=== PATIENT | male | born 1955 | race Caucasian/White ===

== ENCOUNTER 2025-03-26 13:50 | Inpatient (IN) | payer MEDICARE, MEDICAID ==
[~2025-03-26] VITALS: Ht 177.8 cm; Wt 93.0 kg
[2025-03-26] VITALS (8 sets, daily range): BP systolic 151–159; BP diastolic 80–177; PULSE 89–95; RESP 16–23; TEMP 97.1–97.6; O2SAT 91–99
[~2025-03-26 13:50] MED LIST: CLOZ100T PO; CLOZ100T2 PO; ERGO500041 PO; FERR325T39 PO; LOP25T PO; METO-292 PO; OXYB5TAB21 PO; POLY119P2 PO; SIMV-42 PO; SUCR1TAB28 PO; VENL150C5 PO; VIT1TABL83 PO; VITC500T PO; [UNRECOGNIZED DRUG - CODE] PO
--- NOTE | 2025-03-26 14:02 | ELECTROCARDIOGRAPH REPORT ---
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 Sudarshan Ramirez Measurements Intervals [place] Rate: 106 P: 249 [place]: 89 QRS: -26 QRSD: 110 T: 113 QT: 349 QTc: 464 Interpretive Statements Ectopic atrial tachycardia, unifocal Atrial premature complexes Anterior infarct, old Repol abnrm suggests ischemia, lateral leads Electronically Signed On 03-26-2025 18:20:[address] Sudarshan Ramirez Please click the below link to view image of tracing.
--- NOTE | 2025-03-26 14:09 | Physician Documentation ---
History of Present Illness ~ Chief Complaint: Confused Stated Complaint: ALOC Time Seen by MD: 13:54 Primary Medical Doctor: NORMA Source: patient, EMS, EMS notes reviewed, assisted records Mode of Arrival: EMS Exam Limitations: clinical condition HPI Chief Complaint: Confusion, hypotension Caveat: Clinical condition Independent Historians: Paramedics History of Present Illness: Patient is a 70-year-old man brought in by paramed ics from [facility] in [place]. According to staff the patient has had increasing confusion over the last three days. He is normally A&O times three. Patient has been eating and drinking less and becoming increasingly generally weak over the last three days. Today staff found him to be hypotensive but did not provide paramedics with any numbers. Paramedics found the patient to be generally weak and to have a pulse ox in the low 90s. They placed him on 2 L of oxygen. Patient got 50 cc of normal saline prior to arrival. Patient's blood pressure was on the low side 103 systolic per paramedics. Patient states that he has not urinated since last night. Review of systems: All systems were reviewed and are negative except for what is indicated in the history of present illness. Past Medical History: Schizoaffective disorder, BPH Past Surgical History: Social History: Medications: Reviewed as documented Nursing Notes Allergies: Reviewed as documented in Nursing Notes Medication Reconciliation Allergies: Coded Allergies: digoxin (Verified Allergy, Unknown, 03/26/25) lactose (Verified Allergy, Unknown, 10/01/16) Uncoded Allergies: BEES (Allergy, Unknown, 02/26/15) Scheduled Aspirin (Aspir 81), 1 TAB PO DAILY, (Reported) Clozapine (Clozapine), 1 TAB PO HS, (Reported) Docusate Sodium (Colace), 1 CAP PO Q12H, (Reported) Famotidine (Famotidine), 1 TAB PO Q12H, (Reported) Loperamide HCl (Imodium A-D), 1 CAP PO Q8H, (Reported) Magnesium Citrate (MAGNESIUM CITRATE oral solution), 296 ML PO ONCE, (Reported) Meclizine HCl (Meclizine HCl), 1 TAB PO Q8H, (Reported) Metoprolol Tartrate* (Lopressor tablet*), 25 MG PO BID Polyethylene Glycol 3350 (Miralax), 17 GM PO DAILY, (Reported) Sennosides (Senna), 2 TAB PO Q12H, (Reported) Simvastatin* (Zocor*), 20 MG PO HS, (Reported) Tamsulosin Hcl* (Flomax*), 1 CAP PO DAILY, (Reported) Venlafaxine HCl (Effexor Xr), 2 CAP PO DAILY, (Reported) Scheduled PRN Oxycodone HCl/Acetaminophen (Percocet 10-325 mg Tablet), 1 TAB PO QID PRN PRN for pain, (Reported) Miscellaneous Medications Acetaminophen (Tylenol), (Reported) Na Phos,M-B/Na Phos,Di-Ba (Fleet Enema Extra), (Reported) ONDANSETRON ODT 4mg tablet (Ondansetron Odt), 4 MG PO, (Reported) Tuberculin,Purif.prot.deriv. (APLISOL - PPD inj.), 5 UNITS ID, (Reported) Discontinued Medications Ascorbic Acid* (Vitamin C*), 1 TAB PO DAILY, (Reported) Discontinued Reason: patient no longer taking Clozapine (Clozaril), 200 MG PO QAM, (Reported) Discontinued Reason: patient no longer taking Clozapine (Clozaril), 4 TAB PO HS, (Reported) Discontinued Reason: patient no longer taking Ergocalciferol (Vitamin D2) (Vitamin D2), 1 CAP PO Q7D, (Reported) Discontinued Reason: patient no longer taking Ferrous Sulfate (Ferrous Sulfate), 1 TABLET PO BID, (Reported) Discontinued Reason: patient no longer taking Fludrocortisone Acetate (Florinef), 0.2 MG PO DAILY, (Reported) Discontinued Reason: patient no longer taking Metoclopramide HCl (Reglan), 5 MG PO Q8H, (Reported) Discontinued Reason: patient no longer taking Oxybutynin Chloride (Oxybutynin Chloride), 5 MG PO BID Discontinued Reason: patient no longer taking Sucralfate (CARAFATE tablet), 1 GM PO BID, (Reported) Discontinued Reason: patient no longer taking Vit B Comp/C/Fa/Iron/Vit E (Vitamin B Complex Tablet), 1 EACH PO DAILY, (Reported) Discontinued Reason: patient no longer taking Past Medical History Past Medical History: BPH, Schizophrenia Past Surgical History: other Other Past Surgical History: ventral hernia, renal artery stent, vagotomy with pyloroplasty, TURP Patient History: FH: CHF (congestive heart failure) Other Past Family History: NONCONTRIBUTORY Alcohol Use: None Drug Use: none Lives with: Other Lives In: Assisted Care Occupation: retired Review of Systems All Other Systems at this time: Reviewed and Negative ROS Patient denies any other acute symptoms other than above. All other systems are negative Unable to obtain complete ROS: altered mental status Physical Exam Vital Signs: RN Vital Signs have been reviewed: Yes, Temperature: 98.3, Source: Oral, Heart Rate: 103, Respiratory Rate: 16, BP: 127/81, Pulse Oximetry: 98, Weight: 93.000 Pulse Oximetry Reflects: adequate oxygenation Physical Exam General Appearance: No distress, acutely and chronically ill-appearing, pale- appearing HEENT: Normal OP, dry oral mucosa, PERRL, EOMI, head and face are atraumatic Neck: supple, normal ROM, trachea midline Pulmonary: Mild tachypnea, No respiratory distress, CTA, BS equal Cardiac: Tachycardic, regular rhythm, no murmur, rub or gallop, GI: nondistended, soft, nontender, normal bowel sounds, no guarding, no rebound Extremities: normal ROM, no swelling, non-tender Skin: intact, dry, warm, no rashes, pale appearing Neuro: Speech is difficult to understand because he is edentulous, lethargic, n ot oriented. no focal motor weakness, moves all extremities Psych: normal affect, good eye contact, no apparent hallucination, normal speech Progress Results/Orders Results/Orders Orders - ANN RAMÍREZ MD Electrocardiogram (03/26/25 13:56) Culture Blood (03/26/25 13:56) Chest,Single View (03/26/25 14:11) * (B) Bell- Non Protocol * Q12H@,19 (03/26/25 13:56) Ct Head (03/26/25 15:41) Page Hospitalist (03/26/25 16:26) Fill Out Med Reconciliation (03/26/25 16:26) Completed Orders - ANN RAMÍREZ MD Electrocardiogram (03/26/25 13:56) Cbc/Diff (03/26/25 13:56) MG (03/26/25 13:56) Chest,Single View (03/26/25 14:11) Normal Saline 1000ml (0.9% Sodium Chlori (03/26/25 14:00) Procalcitonin (03/26/25 13:56) Ceftriaxone 2gm/D5w 50ml Bag (Rocephin 2 (03/26/25 14:00) Hs Troponin I W Calculations (03/26/25 13:56) Hs Troponin I W Calculations (03/26/25 15:56) Lacticsepsis (03/26/25 13:56) CMP (03/26/25 13:56) Ua W/Microscopic, Cult If Ind (03/26/25 14:26) Ct Head (03/26/25 15:41) Lipase (03/26/25 14:08) Vital Signs 03/26/25 03/26/25 03/26/25 03/26/25 13:52 14:37 14:53 15:20 Temp 98.3 Pulse 103 103 102 Resp 16 16 16 18 B/P (MAP) 127/81 155/85 (108) 141/78 (99) Pulse Ox 98 100 99 O2 Flow Rate 4.0 4.0 4.0 03/26/25 03/26/25 15:55 17:04 Pulse 93 91 Resp 18 16 B/P (MAP) 142/77 (98) 155/78 (103) Pulse Ox 95 99 O2 Flow Rate 4.0 4.0 Laboratory Tests Test 03/26/25 14:08 03/26/25 14:26 03/26/25 16:05 White Blood Count 15.1 H Red Blood Count 4.50 L Hemoglobin 12.9 L Hematocrit 38.7 L Mean Corpuscular Volume 85.9 Mean Corpuscular Hemoglobin 28.6 Mean Corpuscular Hemoglobin Concent 33.2 Red Cell Distribution Width 13.4 Platelet Count 228 Mean Platelet Volume 7.7 Neutrophils (%) (Auto) 85.2 H Lymphocytes (%) (Auto) 5.6 L Monocytes (%) (Auto) 8.0 Eosinophils (%) (Auto) 1.0 Basophils (%) (Auto) 0.2 Neutrophils # (Auto) 12.9 H Lymphocytes # (Auto) 0.9 L Monocytes # (Auto) 1.2 H Eosinophils # (Auto) 0.1 Basophils # (Auto) 0.0 CBC Comment D-Dimer 2.46 H D-Dimer Comment Sodium Level 137 Potassium Level 3.5 Chloride Level 100 Carbon Dioxide Level 25.2 Anion Gap 12 Blood Urea Nitrogen 52 H Creatinine 1.91 H Estimated GFR/1.73 m2 35 BUN/Creatinine Ratio 27.2 H Glucose Level 116 H Lactic Acid Level 2.0 Calcium Level 8.6 Magnesium Level 2.4 Total Bilirubin 0.4 Aspartate Amino Transf (AST/SGOT) 42 H Alanine Aminotransferase (ALT/SGPT) 39 Alkaline Phosphatase 82 Troponin I High Sensitivity 20 20 Total Protein 6.8 Albumin 2.6 L Globulin 4.2 Albumin/Globulin Ratio 0.6 L Lipase 101 H Procalcitonin 0.05 Chemistry Comments Urine Specimen Description Bell cath Urine Color Yellow Urine Clarity Slightly cloudy Urine pH 5.5 Urine Specific Hundred 1.015 Urine Protein Negative Urine Glucose (UA) Negative Urine Ketones Negative Urine Occult Blood Negative Urine Nitrite Negative Urine Bilirubin Negative Urine Urobilinogen 0.2 Urine Leukocyte Esterase Negative Urine RBC 0-2 Urine WBC 0-4 Urine Squamous Epithelial Cells Few Urine Amorphous Urates 1+ Urine Bacteria Few Urine Culture Indicated Not ind Volume Urine Centrifuged 10 ml Urine Comment Troponin I High Sens Percent Delta 0 Troponin I Hi Sens Absolute Change 0 Microbiology Date/Time Source Procedure Growth Status 03/26/25 16:05 Blood Arm Left Blood Culture - Preliminary NO GROWTH AFTER 1 DAY Resulted Medical Decision Making Additional info obtained from: old records Findings Differential diagnosis includes but is not limited to: Metabolic encephalopathy, dehydration, acute kidney injury, electrolyte abnormalities, sepsis, urinary tract infection, GI bleed, pneumonia, dementia, delirium EKG independent interpretation: Performed at 1:59 p.m.. Ectopic atrial tachycardia, heart rate 106, left axis deviation, Q-waves in V1 through V3 Chest x-ray, single view, indication: Altered mental status, hypotension Independent interpretation: Lungs are clear, normal mediastinum, normal cardiac silhouette. No acute cardiopulmonary process CT without IV contrast, indication: Altered mental status Impression: No acute intracranial abnormality Laboratory data independent interpretation: CBC: Leukocytosis 15.1, mild anemia with a hemoglobin of 12.9, 85.2% neutrophils CMP: Elevated BUN and creatinine of 52 and 1.91 respectively. This is consistent with the acute kidney injury and his above his baseline. Lactic acid: 2 1st troponin: 20 Procalcitonin: 0.05 Urinalysis: Unremarkable Emergency department course/medical decision-making: Patient is a 70-year-old man from a assisted who presents with generalized weakness, mild hypotension and dehydration. Patient has a mild acute kidney injury. Patient was worked up for sepsis and given 2.5 L of normal saline and empiric antibiotics, Rocephin 1 g IV. Patient's blood pressure has normalized in his currently 141 systolic. Bell catheter was placed to monitor urine output. Patient's hypotension has resolved since he arrives. Source of the leukocytosis has not identified. Urine is unremarkable. No evidence of pneumonia on the chest x-ray. Patient is now hemodynamically stable. Recommend admission and continued IV antibiotics. Consultation/communications: Approximately 5:00 p.m.: Case discussed with the hospitalist Dr. Shoemaker. She will evaluate the patient for admission. Departure Disposition: ADMITTED INPATIENT Admitted to Inpatient Unit: to hospitalist Admission Level of Care: Med/Surg with Tele Impression: Primary Impression: Altered mental status Qualified Codes: R40.0 - Somnolence Condition: Fair Education Educated: Patient Educated regarding: diagnosis, treatment Signature Scribe Signature: No scribe Attestation: No scribe ANN RAMÍREZ MD Mar 26, 2025 14:09
[2025-03-26] MEDS: CefTRIAXone 2gm/D5W 50ml BAG 50 ML IV ONE (14:13)
[2025-03-26] MEDS: normal saline 1000ML IV soln IV ONE (14:14)
--- NOTE | 2025-03-26 14:23 | RADIOLOGY REPORT ---
CHEST RADIOGRAPH Indication: SEPSIS Technique: Single frontal view of the chest was obtained Comparison: None FINDINGS: Lines and Tubes: None Lungs: No focal consolidation. Pleura: No effusion. No pneumothorax. Cardiomediastinal contours: Heart size is within normal limits with moderate atherosclerotic calcific ation and uncoiling of the aorta. Bones: No acute osseous abnormality. IMPRESSION: No acute cardiopulmonary disease.
[2025-03-26 14:25] LABS: MEAN PLATELET VOLUME 7.7 FL (7.4-10.4); RED CELL DISTRIBUTION WIDTH 13.4 % (11.5-14.5)
[2025-03-26 14:46] LABS: LEUKOCYTE ESTERASE ,URINE NEGATIVE (Neg); NITRITES, URINE NEGATIVE (Neg); OCCULT BLOOD,URINE NEGATIVE (Neg)
[2025-03-26 14:53] LABS: UA COLLECTION TYPE FOLEY CATH
[2025-03-26 14:54] LABS: CREATININE 1.91 MG/DL (0.60-1.10); TOTAL CARBON DIOXIDE 25.2 MMOL/L (24-32); eCRCL 36 ML/MIN; eGFR 35 ML/MIN
[2025-03-26 14:54] LABS: AMORPHOUS URATES 1+; SQUAMOUS EPITHELIAL CELL,UR FEW /LPF (FEW)
--- NOTE | 2025-03-26 16:08 | RADIOLOGY REPORT ---
EXAM: CT CT HEAD INDICATION: aloc TECHNIQUE: CT of the head without intravenous contrast. Radiation Dose : 1. Head: CT Dose: CTDI volume is 52 mGy. Dose-length product is 1019 mGy*cm The dose indicators for CT are the volume Computed Tomography (CT) Dose Index (CTDIvol) and the Dose Length Product (DLP), and are measured in units of mGy and mGy-cm, respectively. These indicators are not patient dose, but values generated from the CT scanner acquisition factors. The report includes radiation exposure data for exposures received during this examination. COMPARISON: None FINDINGS: There is no evidence of acute intracranial hemorrhage, extra-axial collection, mass effect, midline s hift, herniation or hydrocephalus. The ventricles, sulci and cisterns are age appropriate. The smith-white differentiation is intact. Patchy periventricular and subcortical white matter hypoattenuation is nonspecific but may be related to small vessel ischemic disease. The visualized paranasal sinuses and mastoid air cells are clear. The surrounding soft tissues and osseous structures are unremarkable. IMPRESSION: No acute intracranial abnormality. Radiation optimization: All CT scans at this facility use at least one of these dose optimization tanya hniques: automated exposure control mA and/or kV adjustment per patient size (includes targeted exam s where dose is matched to clinical indication) or iterative reconstruction.
[2025-03-26] MEDS ORDERED: potassium Cl 40MEQ/1/2NS 520ml 520 ML IV PRN (17:20)
[2025-03-26] MEDS ORDERED: HYDROcodone/acetaminophen 5mg/325mg tablet PO PRN (17:20)
[2025-03-26] MEDS ORDERED: magnesium sulf-water 4G/100mL 100 ML IV PRN (17:20)
[2025-03-26] MEDS ORDERED: ondansetron 4mg rapidly disintigrating tab PO PRN (17:20)
[2025-03-26] MEDS ORDERED: potassium Cl 20 mEq SR tablet PO PRN (17:20)
[2025-03-26] MEDS ORDERED: magnesium sulf-water 2g/50mL 50 ML IV PRN (17:20)
[2025-03-26] MEDS ORDERED: hydrALAZINE 20mg/ml inj. IV PRN ×2 (17:25→19:00)
[2025-03-26] MEDS: normal saline 500ml IV soln 500 ML IV ONE (17:44)
[2025-03-26 17:53] LABS: ABG BASE EXCESS -4.8 mmol/L (-2.0-3.0); ABG HCO3 19.5 mmol/L (21.0-28.0); ABG OXYGEN SATURATION 95.8 % (94.0-98.0); ABG PCO2 (T) 33.3 mmHg (35.0-48.0); ABG PH (T) 7.384 (7.350-7.450); ABG PO2 (T) 91.8 mmHg (83.0-108.0); ALLEN'S TEST POSITIVE; FCOHb 0.3 % (0.5-1.5); FHHb 4.2 % (0.0-5.0); FIO2 34.0 mmHg/%; FLOW 4 L/min; FMetHb 0.3 % (0.0-1.5); FO2Hb 95.2 % (94.0-98.0); MODE NASAL CANNULA; PATIENT TEMPERATURE 36.8; TOTAL HEMOGLOBIN 11.6 G/dl (13.5-17.5)
--- NOTE | 2025-03-26 17:57 | HISTORY AND PHYSICAL ---
History & Physical Providers to CC ~ History of Present Illness Reason for Admit\Complaint: sepsis, GRACIA History of Present Illness Inderjit Thomas is a 70-year-old male with history of CKD stage III who was brought to the ED from [facility] in [place] due to confusion x 3 days. According to staff the patient is normally A&O x3. Patient has been eating and drinking less and becoming increasingly generally weak over the last three days. Today staff found him to be hypotensive but did not provide paramedics with any readings, though patient's initial BP taken by paramedics was soft with systolic in 100s. Paramedics found the patient to be generally weak and to have a pulse ox in the low 90s. They placed him on 2 L of oxygen. Patient states that he has not urinated since last night. During initial assessment, patient is awake but confused hence history taking is limited. Initial diagnostic findings were notable for signs of sepsis and hypoxia requiring supplemental oxygen. Patient is to be admitted for further workups and treatment. Allergies: Coded Allergies: digoxin (Verified Allergy, Unknown, 03/26/25) lactose (Verified Allergy, Unknown, 10/01/16) Uncoded Allergies: BEES (Allergy, Unknown, 02/26/15) Home Medications Home Medications Active Oxybutynin Chloride 5 Mg Tablet 5 Mg PO BID 30 Days Metoprolol Tartrate 25 Mg Tablet 25 Mg PO BID Reported Vitamin D2 (Ergocalciferol (Vitamin D2)) 50,000 Unit Capsule 1 Cap PO Q7D 28 Days Reglan (Metoclopramide HCl) 10 Mg Tablet 5 Mg PO Q8H 30 Days Ferrous Sulfate 325 Mg Tablet 1 Tablet PO BID Effexor Xr (Venlafaxine HCl) 150 Mg Cap.er.24h 2 Cap PO DAILY 30 Days Vitamin B Complex Tablet (Vit B Comp/C/Fa/Iron/Vit E) 1 Each Tablet 1 Each PO DAILY Vitamin C* (Ascorbic Acid) 500 Mg Tablet 1 Tab PO DAILY Florinef (Fludrocortisone Acetate) 0.1 Mg Tablet 0.2 Mg PO DAILY Miralax (Polyethylene Glycol 3350) 255 Gm Powder 17 Gm PO DAILY Clozaril (Clozapine) 100 Mg Tablet 4 Tab PO HS 30 Days Zocor* (Simvastatin) 20 Mg Tablet 20 Mg PO HS Clozaril (Clozapine) 100 Mg Tablet 200 Mg PO QAM CARAFATE tablet (Sucralfate) 1 Gm Tablet 1 Gm PO BID Past Medical History Past Medical History CKD, stage III Hypotension Past Surgical History Surgical History Comment Noncontributory Family History Family History: FH: CHF (congestive heart failure) Past Social History Social History Comment Alcohol: Denies Tobacco: Denies Illicit drug use: Denies Living situation: [facility] ROS ROS Other than positives in HPI, all 14 review of systems are negative Exam Vitals: Vital Signs Date Time Temp Pulse Resp B/P (MAP) Pulse Ox O2 Delivery O2 Flow Rate FiO2 03/26/25 17:04 91 16 155/78 (103) 99 4.0 03/26/25 13:52 98.3 General: Confused, NAD HEENT: Normocephalic, PERRLA Neck: Supple, trachea midline, no JVD Chest: Clear to auscultation bilaterally Cardiovascular: RRR, S1&S2 Abdomen: Soft and nontender Extremities: No cyanosis/clubbing/or edema Central Nervous System: No focal deficits Musculoskeletal: No paraspinal muscle tenderness, no muscle spasm Skin: Warm and intact Diagnostic Data Last Recorded Lab Results: 03/26/25 1408 03/26/25 1408 Diagnostic Data: Laboratory Tests Test 03/26/25 14:08 D-Dimer 2.46 MG/L FEU (0-0.50) H D-Dimer Comment Counseling Services Smoking & Tobacco Cessation: > 10 Minutes Additional Plan Assessment & Plan Sepsis 2/2 PNA Community-acquired pneumonia, covering for Gram-positive and Gram-negative Acute hypoxic respiratory failure 2/2 above GRACIA vs CKD Hx CKD, stage III Dehydration Malnutrition, severe -BUN/Cr 27, Cr 1.9, GFR 35, lactic acid wnl, serum lytes wnl, CT negative, CT chest b/l pneumonia, UA negative for UTI, procal negative, trops negative, hypoxia, tachycardia, Well's score 3, d-dimer 2.46, EKG ectopic atrial tachy at 106bpm no ST elevation/depression -fluid resuscitation, abx, supplemental oxygen, bronchodilator -follow blood cx, renal US, spot urine lytes, ABG, V/Q scan, strict I&Os DVT/VTE Prophylaxis: heparin Code Status: Full code by default until further assessment Date of Service: Mar 26, 2025 Billing Provider: JONATHON VO [facility] [facility] Common Visit Codes: [id number] INP/OBS CARE (HIGH) JONATHON VO [facility] Mar 26, 2025 17:57
[2025-03-26] MEDS: normal saline 1000ml 1,000 ML IV SCH (18:13)
[2025-03-26] MEDS: azithromycin/NS 500mg/250ml 250 ML IV ONE (18:24)
--- NOTE | 2025-03-26 18:25 | RADIOLOGY REPORT ---
Indication: resp failure, sepsis Technique: CT axial images of the chest are obtained without contrast. Coronal and sagittal reformats were obtained. Radiation Dose Information: CTDI volume is 18.3 mGy. Dose-length product is 672 cm mGy*cm Comparison: None FINDINGS: The trachea is patent. No pneumothorax. Pulmonary emphysematous changes. Bilateral lower lobe consoli dation, [id number]-left. Small right, tiny left pleural effusions. Heart enlarged. Coronary artery calcification disease. Mitral valvular prosthesis. No supraclavicularm, axillary lymphadenopathy. Pretracheal lymph node measuring 12 mm. Right paratra cheal lymph node measuring 13 mm. Numerous subcentimeter prevascular/aortopulmonary lymph nodes. Left paratracheal lymph node measuring 1.7 cm. Esophageal distention, wall thickening. Distal right paraesophageal lymph node measuring 2.2 cm Small hiatal hernia. Gastric distention. No aggressive osseous process. Moderate thoracic degenerative disc disease. Stranding in the upper abdomen near the pancreas. IMPRESSION: Limited evaluation without contrast. Bilateral lower lobe airspace consolidation, [id number]-[id number]-tfrm-left. Small right, tiny left pleural effusions. Mediastinal lymphadenopathy. Stranding in the upper abdomen surrounding the pancreas. Correlate for pancreatitis and other etiolo gies. Esophageal distention and wall thickening with paraesophageal lymphadenopathy. Correlate for esophag itis and other etiologies /mass/neoplasm. Recommend GI consultation for further evaluation.
[2025-03-26] MEDS ORDERED: CLOZ50TA9 PO (18:47)
[2025-03-26] MEDS ORDERED: NA P230E (18:47)
[2025-03-26] MEDS ORDERED: FAMO20TA8 PO (18:47)
[2025-03-26] MEDS ORDERED: DOCU-148 PO (18:47)
[2025-03-26] MEDS ORDERED: MAGN296S68 PO (18:47)
[2025-03-26] MEDS ORDERED: ASPI-611 PO (18:47)
[2025-03-26] MEDS ORDERED: LOPE-190 PO (18:47)
[2025-03-26] MEDS ORDERED: TAMS-55 PO (18:47)
[2025-03-26] MEDS ORDERED: SENN-360 PO (18:47)
[2025-03-26] MEDS ORDERED: ACET-895 (18:47)
[2025-03-26] MEDS ORDERED: PPD ID (18:47)
[2025-03-26] MEDS ORDERED: ONDA-243 PO (18:47)
[2025-03-26] MEDS ORDERED: MECL-302 PO (18:47)
[2025-03-26] MEDS ORDERED: OXYC-150 PO (18:47)
[2025-03-26] MEDS: ipratropium/albuterol 3ml nebule NEB SCH (19:29)
[2025-03-26] MEDS: K and/or MAG REPLACEMENT MC SCH (19:59)
[2025-03-26] MEDS: heparin, porcine 5000 units/ml vial SQ SCH (20:23)
[2025-03-26] MEDS: docusate sod 100mg capsule PO SCH (20:26)
[2025-03-26] MEDS: HYDROcodone/acetaminophen 10/325mg tab PO PRN (21:44)
--- NOTE | 2025-03-26 23:00 | RADIOLOGY REPORT ---
INDICATION: roland TECHNIQUE: Multiple real-time sonographic images of the kidneys and bladder were obtained. COMPARISON: None FINDINGS: RIGHT kidney measures 9.9 x 5.6 x 4.7 cm in length with normal renal parenchymal echotexture and maegan ical thickness. No hydronephrosis. LEFT kidney measures 9.3 x 4.9 x 4.7 cm in length with normal renal parenchymal echotexture and corti jonathon thickness. Moderate hydronephrosis. No large intraluminal masses are seen in the bladder. Post void residual not assessed. Catheter present. IMPRESSION: 1. Moderate left hydronephrosis.
[2025-03-27] VITALS (23 sets, daily range): BP systolic 96–133; BP diastolic 49–68; PULSE 78–150; RESP 14–35; TEMP 97.3–97.8; O2SAT 92–98
[2025-03-27 00:23] LABS: CREATININE,URINE RANDOM 95.0 MG/DL; TOTAL PROTEIN,URINE RANDOM 61.1 MG/DL
[2025-03-27 00:26] LABS: GLUCOSE,URINE RANDOM 15.0 MG/DL
[2025-03-27 04:58] LABS: MEAN PLATELET VOLUME 7.3 FL (7.4-10.4); RED CELL DISTRIBUTION WIDTH 13.8 % (11.5-14.5)
[2025-03-27 05:27] LABS: CREATININE 1.40 MG/DL (0.60-1.10); TOTAL CARBON DIOXIDE 23.5 MMOL/L (24-32); eCRCL 49 ML/MIN; eGFR 50 ML/MIN
[2025-03-27] MEDS: metoprolol tartrate 1mg/ml inj IV ONE (06:35)
--- NOTE | 2025-03-27 06:54 | ELECTROCARDIOGRAPH REPORT ---
[facility] Test Date: 2025-03-27 Test Time: 06:40:29 Pat Name: AUBREY JAVED Department: ORTHO/NEURO Room: ORTHO 4008 A Gender: M Rn Labor And Delivery: : 1955 Requested By: GUALBERTO JEWELL Order Number: [id number] Reading MD: Dr. Jude George Measurements Intervals [place] Rate: 140 P: 0 [place]: 0 QRS: -33 QRSD: 103 T: 133 QT: 304 QTc: 464 Interpretive Statements Atrial fibrillation with rapid V-rate Left axis deviation Anterior infarct, old Consider old inferior infarct Repolarization abnormality, prob rate related Electronically Signed On 03-27-2025 7:59:[address] Jude George Please click the below link to view image of tracing.
[2025-03-27] MEDS ORDERED: metoprolol tartrate 1mg/ml inj IV PRN (07:10)
[2025-03-27] MEDS: normal saline 500ml IV soln 500 ML IV ONE (07:37)
--- NOTE | 2025-03-27 07:41 | RADIOLOGY REPORT ---
EXAM: XR Chest, 1 View CLINICAL INDICATION: Pain TECHNIQUE: Frontal view of the chest. COMPARISON: No relevant prior studies available. FINDINGS: LUNGS AND PLEURAL SPACES: Pulmonary venous congestion. No consolidation. No pneumothorax. HEART: Unremarkable. No cardiomegaly. MEDIASTINUM: Unremarkable. Normal mediastinal contour. BONES/JOINTS: Unremarkable. No acute fracture. IMPRESSION: Pulmonary venous congestion.
--- NOTE | 2025-03-27 09:24 | RADIOLOGY REPORT ---
CLINICAL INFORMATION: Chest pain. TECHNIQUE: Axial CTA images of the chest were obtained after the uneventful administration of 100 mL of Omnipaque 350 IV contrast. Coronal and sagittal reformatted images and MIP images were obtained, r eviewed, and stored. One or more of the following dose reduction techniques were used: Automated expo sure control. Adjustment of mA and/or kV according to patient size. CTDIvol = 20.63, 15.51, 0.07, 0. 07 mGy DLP = 754.46 mGy-cm COMPARISON: None FINDINGS: Pulmonary arteries: There is artifact from dense contrast in the SVC partially obscuring visualizatio n of portions of the proximal right upper lobe and right middle lobe pulmonary artery branches. Given this limitation, there is no evidence for pulmonary embolism. Aorta: No aneurysm. Dense atherosclerotic calcification. Cardiac: Mild cardiomegaly. Dense coronary artery calcification. Mediastinum/robert: Small mediastinal lymph nodes. There is moderate esophageal distension with fluid a nd gas throughout most of its thoracic course. Lungs: Small to moderate right pleural effusion and small left pleural effusion with overlying atelec tasis. There is superimposed consolidation in the right lower lobe. Patchy airspace consolidation in the left lower lobe. Mild interlobular septal thickening, may be seen with interstitial pulmonary jhonathan ma. There are areas of reticulation in the lungs bilaterally, may be due to fibrotic changes. Chest wall: No mass or other abnormality. Upper abdomen: Hepatic steatosis. Gallbladder is distended moderate gastric distention with fluid. Th ere is partially visualized peripancreatic stranding. Bones: No acute fracture or suspicious intraosseous lesions. IMPRESSION: 1. No evidence of pulmonary embolism. Dense contrast in the SVC partially obscures portions of the pr oximal right upper lobe and right middle lobe pulmonary artery branches. 2. Bilateral pleural effusions, right greater than left with overlying atelectasis and consolidations in the lower lobes. 3. Interlobular septal thickening, may be seen with interstitial pulmonary edema in the appropriate c linical setting. Correlate with clinical findings. 4. Partially visualized peripancreatic stranding. Correlate clinically to exclude acute pancreatitis . 5. The stomach and esophagus are distended with fluid and gas, may be due to ileus. Correlate with c linical findings. 6. Additional findings as detailed above.
--- NOTE | 2025-03-27 09:47 | RADIOLOGY REPORT ---
CLINICAL INFORMATION: Respiratory failure, tachycardia. Elevated D-dimer. TECHNIQUE: 40.2 mCi of aerosolized Tc99m DTPA was used for the ventilation portion of the exam. Post erior ventilation imaging was obtained. 4.9 mCi of technetium 99m MAA was used for the perfusion port ion of the exam. Imaging was obtained in multiple planes of projection. COMPARISON: Same day CTA chest. Same day chest radiograph. FINDINGS: Perfusion imaging shows no mismatched segmental or subsegmental segmental defects. Ventilation imaging shows no defects. IMPRESSION: Normal exam. No evidence of pulmonary embolism.
[2025-03-27] MEDS: amiodarone 150mg/dext, iso-os 100 ML IV ONE (09:55)
[2025-03-27] MEDS: amiodarone/D5 360MG/200ML BAG 200 ML IV SCH (10:22)
[2025-03-27] MEDS: mag hydrox/Alum hydrox/simeth 30ml oral suspension PO PRN (10:50)
[2025-03-27] MEDS: potassium Cl 20 mEq SR tablet PO PRN (10:53)
--- NOTE | 2025-03-27 11:03 | PROGRESS NOTE ---
Daily Progress Note Providers to CC ~ Antibiotic Timeout Antibiotic Ordered?: Yes Subjective No acute events overnight. Patient examined at bedside. No new complaints. Patient is A&Ox3 today, denies chest pain, sob, palpitations, abdominal pain, n/v/d. CTA chest negative for pulmonary embolism. Admitted with hypoxia secondary to pneumonia, developed afib RVR today with hypotension, afib rvr in 150s converted to sinus and rate in 80s-90s after metoprolol tart, one dose digoxin, amiodaron drip. LVEF 50-55%, mild dilation of left atrium, no significant VHD. Objective Vital Signs Date Time Temp Pulse Resp B/P (MAP) Pulse Ox O2 Delivery O2 Flow Rate FiO2 03/27/25 10:37 130 18 96/58 (71) 95 Nasal Cannula 2.0 03/27/25 07:47 28 03/27/25 06:00 97.7 Result Diagram: 03/27/25 0445 03/27/255 Physical Exam General: A&Ox3, NAD HEENT: Normocephalic, PERRLA Neck: Supple, trachea midline, no JVD Chest: Clear to auscultation bilaterally Cardiovascular: IRIR Abdomen: Soft and nontender Extremities: No cyanosis/clubbing/or edema Central Nervous System: No focal deficits Musculoskeletal: No paraspinal muscle tenderness, no muscle spasm Skin: Warm and intact Coagulation Studies Laboratory Tests Test 03/27/25 08:30 D-Dimer 2.38 MG/L FEU (0-0.50) H D-Dimer Comment Problem\Assessment\Plan Assessment & Plan Sepsis 2/2 PNA Community-acquired pneumonia, covering for Gram-positive and Gram-negative Acute hypoxic respiratory failure 2/2 above GRACIA vs CKD Hx CKD, stage III Dehydration Malnutrition, severe New atrial fibrillation w/ RVR likely 2/2 hypoxia- not POA Chronic urinary retention -BUN/Cr 27, Cr 1.9, GFR 35, lactic acid wnl, serum lytes wnl, CT negative, CT chest b/l pneumonia, UA negative for UTI, procal negative, trops negative, hypoxia, tachycardia, Well's score 3, d-dimer 2.46, EKG ectopic atrial tachy at 106bpm no ST elevation/depression -fluid resuscitation, abx, supplemental oxygen, bronchodilator -follow blood cx, renal US, spot urine lytes, ABG, V/Q scan, strict I&Os -03/27: Cr downtrending, CTA negative PE, afib rvr in 150s converted to sinus and rate in 80s-90s after metoprolol tart, one dose digoxin, amiodaron drip; LVEF 50-55%, mild dilation of left atrium, no significant VHD, will consult his glazier supervisor Dr. Smith DVT/VTE Prophylaxis: Eliquis Code Status: Full Code I spent a total of 35 minutes discussing Advanced Care Planning measures with the patient. Advance care planning: Discussed with patient the importance of advance care planning in case of emergent situation. We discussed various resuscitative measures/ ACP with the patient at the time of admission. Patient voiced understanding and patient has decided on a full code status. Date of Service: Mar 27, 2025 Billing Provider: JONATHNO VO Common Visit Codes: [id number] INP/OBS CARE(HIGH) Secondary Visit Codes: [id number] CARE PLAN 30 MINUTES JONATHON VO Mar 27, 2025 11:03
[2025-03-27] MEDS: CefTRIAXone 2gm/D5W 50ml BAG 50 ML IV SCH (11:52)
[2025-03-27] MEDS: azithromycin/NS 500mg/250ml 250 ML IV SCH (11:52)
[2025-03-27] MEDS: digoxin 250mcg/ml 2ml ampule IV ONE (13:31)
[2025-03-27] MEDS: metoprolol tartrate 12.5mg (1/2 tablet) PO STA (13:37)
[2025-03-27] MEDS ORDERED: diltiazem-NS 100mg/100ml 100 ML IV SCH (14:20)
--- NOTE | 2025-03-27 19:01 | CARDIOLOGY REPORT ---
APPROVED REPORT EXAM: Comprehensive 2D, Doppler, and color-flow Echocardiogram. Patient Location: 3021 Blood Pressure: 121/49 mmHg Heart Rate: 115 - 155 bpm Rhythm: Atrial Fibrillation Indications Atrial Fibrillation THERAPIST ASST: Erasmo Smith MD Previous ECHO: 10/09/2019, CVC, EF: 55; DENNIS: 1.13; GRAD: 39 / 15; MV GRAD: 22 / 8; mod AI 2D Dimensions LA Diam3.9 cm IVSd 0.9 (0.7-1.1cm) LVDd 3.6 cm PWd 1.1 (0.7-1.1cm) IVSs 1.2 (0.8-1.2cm) LVDs 2.6 (2.5-4.0cm) PWs 1.3 (0.8-1.2cm) LVOT Diameter 2.05 (1.8-2.4cm) LVEF(%) 54.9 (>50%) IVC 19.58 mm FS (%) 27.8 % SV 30.2 ml CO 3.7 L/min M-Mode Dimensions Left Atrium(MM) 4.48 (2.5-4.0cm) Aortic Root 2.70 (2.2-3.7cm) Aortic Cusp Exc 1.00 (1.5-2.0cm) Aortic Valve AoV Peak John. 320.5 cm/s AoV VTI 47.6 cm AO Peak GR. 41.1 mmHg AO Mean GR. 24 mmHg LVOT VTI 18.67 cm LVOT Peak John. 109.2 cm/s DENNIS(VTI)/BSA 1.30 cm2/m2 DENNIS (VTI) 1.30 cm2 AI P 1/2 Time 524 ms Mitral Valve MV Peak Gr. 12 mmHg MV Mean Gr. 8 mmHg MV OQnz254.0 cm/sMV UBxcg033.5 cm/s MVA VTI1.76 cm2MV VTI35.2 cm Tricuspid Valve TR P. Velocity 270 cm/s RAP ESTIMATE 10 mmHg TR Peak Gr. 29 mmHg RVSP 39 mmHg LEFT VENTRICLE Normal LV size and wall thickness. Overall systolic function is low normal. LVEF is 50-55%. RIGHT VENTRICLE Right ventricle is grossly normal in size and function. ATRIA Left atrium is mildly dilated. AORTIC VALVE Trileaflet AV is moderately stenostic. DENNIS is measured at 1.30 cmsq. Peak / mean gradients of 41 / 24 mmHG. Peak velocity is measured at 3.20 m/sec. Mild to moderate regurgitation. MITRAL VALVE Moderate mitral annular calcification with moderate stenosis. Peak / mean gradients of 12 / 8 mmHG. Trace regurgitation. TRICUSPID VALVE Tricuspid valve is grossly normal in structure with trace regurgitation. PULMONIC VALVE Pulmonic valve is grossly normal in structure with physiologic insufficiency. GREAT VESSELS The aortic root is normal in size. The IVC is normal in size and collapses >50% with inspiration. PERICARDIUM Normal pericardium. No effusion. Other Information Study Quality: Fair Conclusion Normal LV size and wall thickness. Overall systolic function is low normal. LVEF is 50-55%. Right ventricle is grossly normal in size and function. Left atrium is mildly dilated. Trileaflet AV is moderately stenostic. DENNIS is measured at 1.30 cmsq. Peak / mean gradients of 41 / 24 mmHG. Peak velocity is measured at 3.20 m/sec. Mild to moderate regurgitation. Moderate mitral annular calcification with moderate stenosis. Peak / mean gradients of 12 / 8 mmHG. Trace regurgitation. Tricuspid valve is grossly normal in structure with trace regurgitation. Normal pericardium. No effusion.
[2025-03-27] MEDS ORDERED: metoprolol tartrate 12.5mg (1/2 tablet) PO SCH (20:00)
[2025-03-27] MEDS: PERFLUTREN PROTEIN-A MICROSPHR (Optison) 0.22 MG/ML 3ML VIAL IV ONE (20:50)
[2025-03-28] VITALS (25 sets, daily range): BP systolic 109–141; BP diastolic 48–69; PULSE 82–100; RESP 14–28; TEMP 97–98.2; O2SAT 92–97
[2025-03-28 06:09] LABS: MEAN PLATELET VOLUME 7.3 FL (7.4-10.4); RED CELL DISTRIBUTION WIDTH 13.9 % (11.5-14.5)
[2025-03-28 06:21] LABS: CREATININE 1.18 MG/DL (0.60-1.10); TOTAL CARBON DIOXIDE 23.7 MMOL/L (24-32); eCRCL 58 ML/MIN; eGFR 61 ML/MIN
[2025-03-28] MEDS ORDERED: mineral oil 133ml enema RC PRN (06:45)
[2025-03-28] MEDS: diltiazem CD 120mg capsule (once-daily) PO SCH (08:45)
[2025-03-28] MEDS: magnesium hydroxide 30ml (MOM) UD suspension PO PRN (09:00)
--- NOTE | 2025-03-28 11:33 | PROGRESS NOTE ---
Daily Progress Note Providers to CC ~ Antibiotic Timeout Antibiotic Ordered?: Yes Subjective No acute events overnight. Patient examined at bedside. No new complaints. Patient is A&Ox3 today, denies chest pain, sob, palpitations, abdominal pain, n/v/d. Afib rvr converted and rate controlled, in 90s. Labs unremarkable. On oral diltiazem, metoprolol, amiodarone. Objective Vital Signs Date Time Temp Pulse Resp B/P (MAP) Pulse Ox O2 Delivery O2 Flow Rate FiO2 03/28/25 10:36 90 03/28/25 08:44 20 Nasal Cannula 1.0 03/28/25 08:35 94 24 03/28/25 06:00 97.3 137/69 (91) Result Diagram: 03/28/25 0537 03/28/25 0537 Physical Exam General: A&Ox3, NAD HEENT: Normocephalic, PERRLA Neck: Supple, trachea midline, no JVD Chest: Clear to auscultation bilaterally Cardiovascular: RRR Abdomen: Soft and nontender Extremities: No cyanosis/clubbing/or edema Central Nervous System: No focal deficits Musculoskeletal: No paraspinal muscle tenderness, no muscle spasm Skin: Warm and intact Coagulation Studies Laboratory Tests Test 03/27/25 08:30 D-Dimer 2.38 MG/L FEU (0-0.50) H D-Dimer Comment Problem\Assessment\Plan Assessment & Plan Sepsis 2/2 PNA Community-acquired pneumonia, covering for Gram-positive and Gram-negative Acute hypoxic respiratory failure 2/2 above GRACIA vs CKD Hx CKD, stage III Dehydration Malnutrition, severe New atrial fibrillation w/ RVR likely 2/2 hypoxia- not POA Chronic urinary retention -BUN/Cr 27, Cr 1.9, GFR 35, lactic acid wnl, serum lytes wnl, CT negative, CT chest b/l pneumonia, UA negative for UTI, procal negative, trops negative, hypoxia, tachycardia, Well's score 3, d-dimer 2.46, EKG ectopic atrial tachy at 106bpm no ST elevation/depression -fluid resuscitation, abx, supplemental oxygen, bronchodilator -follow blood cx, renal US, spot urine lytes, ABG, V/Q scan, strict I&Os -03/27: Cr downtrending, CTA negative PE, afib rvr in 150s converted to sinus and rate in 80s-90s after metoprolol tart, one dose digoxin, amiodaron drip; LVEF 50-55%, mild dilation of left atrium, no significant VHD, consulted body and fender mechanic apprentice Dr. Bi Smith who recommends outpatient follow up as afib rvr controlled now -03/28: Tele sinus in 80s-90s. On oral diltiazem, metoprolol, amiodarone DVT/VTE Prophylaxis: Eliquis Code Status: Full Code I spent a total of 35 minutes discussing Advanced Care Planning measures with the patient. Advance care planning: Discussed with patient the importance of advance care planning in case of emergent situation. We discussed various resuscitative measures/ ACP with the patient at the time of admission. Patient voiced understanding and patient has decided on a full code status. Date of Service: Mar 28, 2025 Billing Provider: JONATHON VO Common Visit Codes: [id number] INP/OBS CARE(HIGH) JONATHON VO Mar 28, 2025 11:33
[2025-03-28] MEDS: ringers solution, lacted 1,000 ML IV SCH (12:25)
[2025-03-28] MEDS: lactose-reduced food (Ensure Enlive) - 237ml bottle PO SCH (18:14)
[2025-03-28 22:03] LABS: MEAN PLATELET VOLUME 7.8 FL (7.4-10.4); RED CELL DISTRIBUTION WIDTH 13.8 % (11.5-14.5)
[2025-03-29] VITALS (17 sets, daily range): BP systolic 112–140; BP diastolic 57–83; PULSE 54–109; RESP 11–23; TEMP 97.2–98.4; O2SAT 93–99
[2025-03-29 06:56] LABS: MEAN PLATELET VOLUME 7.7 FL (7.4-10.4); RED CELL DISTRIBUTION WIDTH 13.7 % (11.5-14.5)
[2025-03-29 07:02] LABS: CREATININE 1.22 MG/DL (0.60-1.10); TOTAL CARBON DIOXIDE 24.4 MMOL/L (24-32); eCRCL 57 ML/MIN; eGFR 58 ML/MIN
[2025-03-29] MEDS: ondansetron/PF 4mg/2ml inj IV PRN (07:51)
--- NOTE | 2025-03-29 07:52 | VASCULAR REPORT ---
VASC VL VENOUS HISTORY: elevated dimer COMPARISON: None TECHNIQUE: Duplex doppler evaluation of the deep venous system of the lower extremity from the common femoral veins, superficial femoral vein, great saphenous vein, deep femoral vein, popliteal vein, an d calf veins, including color doppler and spectral/pulsed waveform analysis, was performed. FINDINGS: Right: - Common femoral vein: Compressible - Deep femoral vein: Compressible - Femoral vein: Compressible - Popliteal vein: Compressible - Posterior tibial vein: Waveforms present - Peroneal vein: Waveforms present - Other: Nothing Left: - Common femoral vein: Compressible - Deep femoral vein: Compressible - Femoral vein: Compressible - Popliteal vein: Compressible - Posterior tibial vein: Waveforms present - Peroneal vein: Waveforms present - Other: Nothing IMPRESSION: No right or left lower extremity deep venous thrombosis.
--- NOTE | 2025-03-29 12:35 | PROGRESS NOTE ---
Daily Progress Note Providers to CC ~ Antibiotic Timeout Antibiotic Ordered?: Yes Subjective No acute events overnight. Patient examined at bedside. No new complaints. Patient is A&Ox3 today, denies chest pain, sob, palpitations, abdominal pain, n/v/d. Afib rvr converted and rate controlled, in 90s-100s. Labs unremarkable. An episode of melena and drop of Hgb by 2.6g/dL. MIGUELINA Dhillon Dr. consulted and planned for EGD today but attempt unsuccessful due to severe emesis. Objective Vital Signs Date Time Temp Pulse Resp B/P (MAP) Pulse Ox O2 Delivery O2 Flow Rate FiO2 03/29/25 12:02 98 11 03/29/25 10:47 Nasal Cannula* 2 28 03/29/25 07:00 97.8 133/65 (87) 95 Result Diagram: 03/29/25 0609 03/29/25 0609 Physical Exam General: A&Ox3, NAD HEENT: Normocephalic, PERRLA Neck: Supple, trachea midline, no JVD Chest: Clear to auscultation bilaterally Cardiovascular: RRR Abdomen: Soft and nontender Extremities: No cyanosis/clubbing/or edema Central Nervous System: No focal deficits Musculoskeletal: No paraspinal muscle tenderness, no muscle spasm Skin: Warm and intact Coagulation Studies Laboratory Tests Test 03/27/25 08:30 D-Dimer 2.38 MG/L FEU (0-0.50) H D-Dimer Comment Problem\Assessment\Plan Assessment & Plan Sepsis 2/2 PNA Community-acquired pneumonia, covering for Gram-positive and Gram-negative Acute hypoxic respiratory failure 2/2 above GRACIA vs CKD Hx CKD, stage III Dehydration Malnutrition, severe New atrial fibrillation w/ RVR likely 2/2 hypoxia- not POA Chronic urinary retention -BUN/Cr 27, Cr 1.9, GFR 35, lactic acid wnl, serum lytes wnl, CT negative, CT chest b/l pneumonia, UA negative for UTI, procal negative, trops negative, hypoxia, tachycardia, Well's score 3, d-dimer 2.46, EKG ectopic atrial tachy at 106bpm no ST elevation/depression -fluid resuscitation, abx, supplemental oxygen, bronchodilator -follow blood cx, renal US, spot urine lytes, ABG, V/Q scan, strict I&Os -03/27: Cr downtrending, CTA negative PE, afib rvr in 150s converted to sinus and rate in 80s-90s after metoprolol tart, one dose digoxin, amiodaron drip; LVEF 50-55%, mild dilation of left atrium, no significant VHD, consulted deputy director Dr. Bi Smith who recommends outpatient follow up as afib rvr controlled now -03/28: Tele sinus in 80s-90s. On oral diltiazem, metoprolol, amiodarone -03/30: An episode of melena and drop of Hgb by 2.6g/dL. GI Dr. Hernandez consulted and planned for EGD today but attempt unsuccessful due to severe emesis. EGD rescheduled for tomorrow. DVT/VTE Prophylaxis: Eliquis Code Status: Full Code I spent a total of 35 minutes discussing Advanced Care Planning measures with the patient. Advance care planning: Discussed with patient the importance of advance care planning in case of emergent situation. We discussed various resuscitative measures/ ACP with the patient at the time of admission. Patient voiced understanding and patient has decided on a full code status. Date of Service: Mar 29, 2025 Billing Provider: JONATHON VO Common Visit Codes: [id number] INP/OBS CARE(HIGH) JONATHON VO Mar 29, 2025 12:35
[2025-03-29] MEDS ORDERED: midazolam 1 mg/ML 2ml injection ONE (14:49)
[2025-03-29] MEDS: ringers solution, lacted 1,000 ML IV SCH (19:51)
[2025-03-30] VITALS (26 sets, daily range): BP systolic 103–151; BP diastolic 53–78; PULSE 87–116; RESP 13–26; TEMP 97–97.5; O2SAT 91–99
[2025-03-30 07:42] LABS: MEAN PLATELET VOLUME 7.6 FL (7.4-10.4); RED CELL DISTRIBUTION WIDTH 13.7 % (11.5-14.5)
[2025-03-30 08:22] LABS: CREATININE 1.06 MG/DL (0.60-1.10); PRO BRAIN NATRIURETIC PEPTIDE 6894 PG/ML (0-125); TOTAL CARBON DIOXIDE 25.2 MMOL/L (24-32); eCRCL 65 ML/MIN; eGFR 69 ML/MIN
[2025-03-30] MEDS ORDERED: LIDOcaine 2% Viscous 15ml cup ONE (09:24)
[2025-03-30] MEDS ORDERED: fentaNYL/PF 50MCG/1 ML 2ML syringe ONE (10:10)
[2025-03-30] MEDS ORDERED: midazolam 1 mg/ML 2ml injection ONE (10:10)
[2025-03-30] MEDS ORDERED: LIDOcaine 1%/PF 5ML 10 MG/ML VIAL ONE (10:37)
--- NOTE | 2025-03-30 12:51 | PROGRESS NOTE ---
Daily Progress Note Providers to CC ~ Antibiotic Timeout Antibiotic Ordered?: Yes Subjective No acute events overnight. Patient examined at bedside. No new complaints, not in acute distress. Patient denies chest pain, sob, palpitations, abdominal pain, n/v/d. Tele sinus tachy in 100s. Labs unremarkable. EGD re-attempted today. However, EGD incomplete due to poor visualization due to filled fluids in stomach. Patient refused NGT yesterday. Findings notable for Grade D esophagitis, gastric outlet obstruction, stomach filled with fluids. 1600cc fluid output through NGT during EGD. Repeat EGD planned in 1-2 days. Last bowel movement 03/28/25. CT abdomen/pelvis to follow. Objective Vital Signs Date Time Temp Pulse Resp B/P (MAP) Pulse Ox O2 Delivery O2 Flow Rate FiO2 03/30/25 11:40 115 23 126/59 91 03/30/25 11:00 Nasal Cannula 3.0 03/30/25 08:29 21 03/30/25 06:00 97.5 Result Diagram: 03/30/25 0705 03/30/25 0705 Physical Exam General: Generalized weakness, A&Ox3, NAD HEENT: Normocephalic, PERRLA Neck: Supple, trachea midline, no JVD Chest: Clear to auscultation bilaterally Cardiovascular: RRR Abdomen: Hypoactive bowel sound left and right lower quadrants; mild abdominal pain, rebound tenderness Extremities: No cyanosis/clubbing/or edema Central Nervous System: No focal deficits Musculoskeletal: No paraspinal muscle tenderness, no muscle spasm Skin: Warm and intact Coagulation Studies Laboratory Tests Test 03/27/25 08:30 D-Dimer 2.38 MG/L FEU (0-0.50) H D-Dimer Comment Problem\Assessment\Plan Assessment & Plan Sepsis 2/2 PNA Community-acquired pneumonia, covering for Gram-positive and Gram-negative Acute hypoxic respiratory failure 2/2 above GRACIA vs CKD Hx CKD, stage III Dehydration Malnutrition, severe New atrial fibrillation w/ RVR likely 2/2 hypoxia- not POA Chronic urinary retention GIB Grade D esophagitis Gastric outlet obstruction -BUN/Cr 27, Cr 1.9, GFR 35, lactic acid wnl, serum lytes wnl, CT negative, CT chest b/l pneumonia, UA negative for UTI, procal negative, trops negative, hypoxia, tachycardia, Well's score 3, d-dimer 2.46, EKG ectopic atrial tachy at 106bpm no ST elevation/depression -fluid resuscitation, abx, supplemental oxygen, bronchodilator -follow blood cx, renal US, spot urine lytes, ABG, V/Q scan, strict I&Os -03/27: Cr downtrending, CTA negative PE, afib rvr in 150s converted to sinus and rate in 80s-90s after metoprolol tart, one dose digoxin, amiodaron drip; LVEF 50-55%, mild dilation of left atrium, no significant VHD, consulted senior microstrategy developer Dr. Bi Smith who recommends outpatient follow up as afib rvr controlled now -03/28: Tele sinus in 80s-90s. On oral diltiazem, metoprolol, amiodarone -03/30: An episode of melena and drop of Hgb by 2.6g/dL. GI Dr. Hernandez consulted and planned for EGD today but attempt unsuccessful due to severe emesis. NGT ordered but refused by pt. EGD rescheduled for tomorrow. -03/31: EGD re-attempted today. EGD incomplete due to poor visualization due to filled fluids in stomach. Findings notable for Grade D esophagitis, gastric outlet obstruction, stomach filled with fluids. 1600cc fluid output through NGT during EGD. Repeat EGD planned in 1-2 days. On intermittent suction now. NPO, IVF, follow CT abd/pelv w/iv & oral DVT/VTE Prophylaxis: Eliquis Code Status: Full Code I spent a total of 35 minutes discussing Advanced Care Planning measures with the patient. Advance care planning: Discussed with patient the importance of advance care planning in case of emergent situation. We discussed various resuscitative measures/ ACP with the patient at the time of admission. Patient voiced understanding and patient has decided on a full code status. Date of Service: Mar 30, 2025 Billing Provider: JONATHON VO Common Visit Codes: [id number] INP/OBS CARE(HIGH) JONATHON VO Mar 30, 2025 12:51
[2025-03-30] MEDS: diltiazem SR 60mg capsule (twice daily) PO SCH (14:16)
[2025-03-30] MEDS: ketorolac trometh 15mg/ml vial 15 MG/ML ML IV PRN (17:55)
[2025-03-30] MEDS ORDERED: diatr meglu/diatrizoate 30ml oral sol.-(3 dose) bottle PO SCH (21:00)
[2025-03-30] MEDS: diatr meglu/diatrizoate 30ml oral sol.-(3 dose) bottle PO SCH (21:12)
[2025-03-31] VITALS (9 sets, daily range): BP systolic 127–162; BP diastolic 58–75; PULSE 87–112; RESP 12–20; TEMP 96.9–98.4; O2SAT 94–100
[2025-03-31] MEDS: ketorolac trometh 15mg/ml vial 15 MG/ML ML IV ONE (01:02)
--- NOTE | 2025-03-31 06:00 | ELECTROCARDIOGRAPH REPORT ---
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 JOHN Mason Measurements Intervals [place] Rate: 102 P: 79 W[place]: 166 QRS: -21 QRSD: 109 T: 87 QT: 392 QTc: 511 Interpretive Statements Sinus tachycardia Atrial premature complexes Anterior infarct, old Prolonged QT interval Electronically Signed On 03-31-2025 18:19:[address] JOHN Mason Please click the below link to view image of tracing.
[2025-03-31 10:03] LABS: MEAN PLATELET VOLUME 7.2 FL (7.4-10.4); RED CELL DISTRIBUTION WIDTH 13.7 % (11.5-14.5)
[2025-03-31 10:31] LABS: CREATININE 1.06 MG/DL (0.60-1.10); TOTAL CARBON DIOXIDE 26.3 MMOL/L (24-32); eCRCL 65 ML/MIN; eGFR 69 ML/MIN
[2025-03-31] MEDS ORDERED: iohexol 300mg/ml 100ml inj. ONE (11:02)
--- NOTE | 2025-03-31 11:32 | RADIOLOGY REPORT ---
Indication: obstrution Technique: CT axial images of the abdomen and pelvis are obtained with intravenous contrast. Coronal and sagittal reformats were obtained. Radiation Dose Information: CTDI volume is 92.3 mGy. Dose-length product is 1482 mGy*cm Comparison: None FINDINGS: There are moderate bilateral pleural effusions. Bibasilar consolidation, tree-in-bud nodularity. Adrenal glands, spleen unremarkable. Peripancreatic edema/ stranding. Small subcentimeter peripancrea tic lymph nodes. No CT evidence for cholelithiasis. No enhancing hepatic lesion. The kidneys demonstrate no hydronephrosis. Nasogastric tube projecting towards the distal stomach. Moderate gastric distention. Duodenal region luminal narrowing. Moderate volume stool in the colon. Extensive abdominal aortic atherosclerotic disease. 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 Iliac artery stents. High-grade stenosis of the left common iliac artery, 80-90% stenoses. Bladder is partially decompressed by Bell catheter. No free pelvic fluid. No inguinal lymphadenopath y. Soft tissue edema / anasarca. Small amount of ascites fluid. [id number] thoracolumbar degenerative disc disease. Heterogeneously lesion within the right gluteal musculature measuring 3.6 x 2.8 cm. IMPRESSION: Peripancreatic edema and stranding suggesting pancreatitis. Correlate with appropriate lab values. Duodenal region luminal narrowing which could be secondary to underlying pancreatitis, duodenitis. F ollow-up to resolution to exclude underlying duodenal lesion. This results in moderate gastric diste ntion Moderate to large volume stool within the colon. Bibasilar pulmonary airspace consolidation/tree-in-bud nodularity which can be seen with atypical inf ection, bronchiolitis. Moderate bilateral pleural effusions. Heterogeneous lesion in the right gluteal musculature measuring 3.6 x 2.8 cm. Recommend MRI of the r ight gluteal region/pelvis with and without contrast to evaluate and exclude abscess, soft tissue mas s Atherosclerotic disease. Aneurysmal dilatation infrarenal abdominal aorta to 3.1 cm. Recommend vasc ular surgery consultation. High-grade stenosis left common iliac artery. Soft tissue edema/ anasarca. Small amount of ascites fluid. Other findings as described.
--- NOTE | 2025-03-31 13:14 | PROGRESS NOTE ---
Daily Progress Note Providers to CC ~ Antibiotic Timeout Antibiotic Ordered?: Yes Subjective No acute events overnight. Patient examined at bedside. No new complaints, not in acute distress. Patient denies chest pain, sob, palpitations, abdominal pain, n/v/d. Tele sinus tachy in 100s. Labs unremarkable. EGD re-attempted yesterday. However, EGD incomplete due to poor visualization due to filled fluids in stomach. Patient on NGT. Partial EGD findings notable for Grade D esophagitis, gastric outlet obstruction, stomach filled with fluids. 1600cc fluid output through NGT during EGD. Repeat EGD planned in 1-[address] abdomen/pelvis shows pancreatitis, duodenitis, high-grade stenosis left common iliac artery. Arterial US/ VLADISLAV to follow. Objective Vital Signs Date Time Temp Pulse Resp B/P (MAP) Pulse Ox O2 Delivery O2 Flow Rate FiO2 03/31/25 11:25 98.4 107 20 138/70 (92) 100 Nasal Cannula 2.0 03/31/25 08:00 24 Result Diagram: 03/31/2592403/31/25924 Physical Exam General: Generalized weakness, A&Ox3, NAD HEENT: Normocephalic, PERRLA Neck: Supple, trachea midline, no JVD Chest: Clear to auscultation bilaterally Cardiovascular: RRR Abdomen:: Mild upper quadrant abdominal pain with palpation, no rebound tenderness Extremities: No cyanosis/clubbing/or edema Central Nervous System: No focal deficits Musculoskeletal: No paraspinal muscle tenderness, no muscle spasm Skin: Warm and intact Coagulation Studies Laboratory Tests Test 03/27/25 08:30 D-Dimer 2.38 MG/L FEU (0-0.50) H D-Dimer Comment Problem\Assessment\Plan Assessment & Plan Sepsis 2/2 PNA Community-acquired pneumonia, covering for Gram-positive and Gram-negative Acute hypoxic respiratory failure 2/2 above GRACIA vs CKD Hx CKD, stage III Dehydration Malnutrition, severe New atrial fibrillation w/ RVR likely 2/2 hypoxia- not POA Chronic urinary retention GIB Grade D esophagitis Gastric outlet obstruction Duodenitis Pancreatitis -BUN/Cr 27, Cr 1.9, GFR 35, lactic acid wnl, serum lytes wnl, CT negative, CT chest b/l pneumonia, UA negative for UTI, procal negative, trops negative, hypoxia, tachycardia, Well's score 3, d-dimer 2.46, EKG ectopic atrial tachy at 106bpm no ST elevation/depression -fluid resuscitation, abx, supplemental oxygen, bronchodilator -follow blood cx, renal US, spot urine lytes, ABG, V/Q scan, strict I&Os -03/27: Cr downtrending, CTA negative PE, afib rvr in 150s converted to sinus and rate in 80s-90s after metoprolol tart, one dose digoxin, amiodaron drip; LVEF 50-55%, mild dilation of left atrium, no significant VHD, consulted barrow worker helper Dr. Bi Smith who recommends outpatient follow up as afib rvr controlled now -03/28: Tele sinus in 80s-90s. On oral diltiazem, metoprolol, amiodarone -03/29: An episode of melena and drop of Hgb by 2.6g/dL. GI Dr. Hernandez consulted and planned for EGD today but attempt unsuccessful due to severe emesis. NGT ordered but refused by pt. EGD rescheduled for tomorrow. -03/30: EGD re-attempted today. EGD incomplete due to poor visualization due to filled fluids in stomach. Findings notable for Grade D esophagitis, gastric outlet obstruction, stomach filled with fluids. 1600cc fluid output through NGT during EGD. Repeat EGD planned in 1-2 days. On intermittent suction now. NPO, IVF, follow CT abd/pelv w/iv & oral. -03/31: CT abdomen/pelvis shows pancreatitis, duodenitis, high-grade stenosis left common iliac artery. Arterial US/ VLADISLAV to follow. On Zosyn, Zithromax. DVT/VTE Prophylaxis: Eliquis Code Status: Full Code I spent a total of 35 minutes discussing Advanced Care Planning measures with the patient. Advance care planning: Discussed with patient the importance of advance care planning in case of emergent situation. We discussed various resuscitative measures/ ACP with the patient at the time of admission. Patient voiced understanding and patient has decided on a full code status. Date of Service: Mar 31, 2025 Billing Provider: JONATHON VO Common Visit Codes: [id number] INP/OBS CARE(HIGH) JONATHON VOP Mar 31, 2025 13:14
--- NOTE | 2025-03-31 15:01 | RADIOLOGY REPORT ---
Technique: Real-time ultrasound imaging of the abdomen was performed with grayscale and color Doppler . Indication: gallbladder Comparison: None Findings: Liver measures 15.1 cm. It is increased in echogenicity and echotexture without focal mass. Portal v ein is normal in caliber and demonstrates normal hepatopetal flow. Gallbladder demonstrates no evidence for cholelithiasis. There is no pericholecystic fluid. The wall thickness is normal. The common bile duct measures 5 mm. No intrahepatic biliary ductal dilatation. The right kidney measures 10.6 cm. No hydronephrosis or sonographic evidence of nephrolithiasis. The visualized portion of the pancreas is unremarkable. The visualized portion of the IVC is unremarkable. Impression: Echogenic liver which can be seen with hepatic steatosis, cirrhosis. No sonographic evidence for cholelithiasis.
--- NOTE | 2025-03-31 15:06 | VASCULAR REPORT ---
EXAM: VASC VL VLADISLAV ANKLE/BRACHIAL INDEX CLINICAL HISTORY: Peripheral arterial disease Peripheral vascular disease COMPARISON: None TECHNIQUE: Bilateral systolic ankle and brachial pressures are obtained, with ankle pulse volume waveforms and i ndices. FINDINGS: Pressures: Right Left Brachial 159 mmHg PT 130 mmHg 120 mmHg DP 160 mmHg 138 mmHg VLADISLAV: Right Left 1 .87 IMPRESSION: Findings suggestive of [id number] left lower extremity peripheral arterial disease. 1.0-1.4: normal 0.91-0.99 borderline 0.9: abnormal (i.e. PAD) 0.4-0.9: [id number] PAD <0.4: suggestive of severe PAD
[2025-03-31] MEDS: mineral oil 133ml enema RC PRN (15:14)
[2025-03-31] MEDS: piperacillin/tazo 3.375gm/50ml 50 ML IV SCH (15:14)
--- NOTE | 2025-03-31 15:45 | VASCULAR REPORT ---
Indication: Peripheral arterial disease Technique: Real- time ultrasound images of the bilateral lower extremity with grayscale, color, and spectral wave Doppler. Comparison: None Findings: Diffuse atherosclerotic calcification disease. Biphasic waveforms in the right MALWARE ANALYST, SFA, popliteal, p osterior tibial, anterior tibial arteries. Biphasic waveforms left MALWARE ANALYST, SFA artery. Triphasic wavefo bertrand left popliteal artery. Monophasic waveform left posterior tibial, peroneal arteries Peak systolic velocities are as follows (in cm/s): Right: Common femoral artery: 269 Profunda femoris: 117 Proximal superficial femoral: 326 Mid superficial femoral artery: 96 Distal superficial femoral artery: 88 Popliteal artery: 84 Posterior tibial artery: 63 Anterior tibial artery: 118 Left: Common femoral artery: 161 Profunda femoris: 76 Proximal superficial femoral: 131 Mid superficial femoral artery: 85 Distal superficial femoral artery: 115 Popliteal artery: 112 Posterior tibial artery: 76 Anterior tibial artery: 91 Impression: High-grade stenosis of the right proximal SFA. Moderate high-grade stenosis of the right common femoral artery. Diffuse atherosclerotic calcification disease.
[2025-03-31] MEDS: metoprolol tartrate 1mg/ml inj IV PRN (20:09)
[2025-04-01] VITALS (17 sets, daily range): BP systolic 82–155; BP diastolic 54–76; PULSE 80–104; RESP 10–28; TEMP 97.6–97.9; O2SAT 92–99
--- NOTE | 2025-04-01 09:42 | PROGRESS NOTE ---
Daily Progress Note Providers to CC ~ chief complaint, willing to have a meal Central Line/PICC still needed: No Bell-Non Protocol Bell Indications Met/Not Met: F/C Indications Not Met Antibiotic Timeout Antibiotic Ordered?: Yes MRSA Education MRSA Education Provided to pt: Yes Subjective As above Objective Vital Signs Date Time Temp Pulse Resp B/P (MAP) Pulse Ox O2 Delivery O2 Flow Rate FiO2 04/01/25 08:08 13 04/01/25 07:40 102 04/01/25 07:39 99 Nasal Cannula* 1 24 04/01/25 02:00 97.9 155/68 (97) Vital signs, stable ,afebrile. Pulse Oximetry reflects adequate oxygenation. General: well developed, well nourished. Awake , alert, and oriented x4, resting comfortably in the bed, in no acute distress . Skin: Warm, dry, no pallor, no rash or petechiae. HEENT: Atraumatic, normocephalic, EOMI, anicteric sclera B; pink conjunctiva; PERRLA, normal oropharynx, moist oral and nasal mucosa. Tympanic membrane , nose , throat clear. Neck: Trachea midline. Supple, full range of motion, no JVD, bruit , hepatojugular reflex , lymphadenopathy or masses, or other lesions Cardiac: Regular rhythm, regular rate no murmurs, rubs, or gallops. Normal S1 and S2, no S3 noticed. PMI is normal. Respiratory: Equal breath sounds bilaterally, no tachypnea; lungs clear to auscultation bilaterally, no wheezing ,rub or rales, or crackles. Chest wall is symmetric and without deformity. No signs of trauma. Chest wall is nontender. No signs of respiratory distress. Resonance is normal upon percussion bilaterally. Gastrointestinal: Abdomen symmetric, non-distended, soft, non-tender, normal bowel sounds x4 quadrant, normoactive, no hepatosplenomegaly , no masses , no bruit, no flank pain bilaterally. No voluntary guarding, rebound, or rigidity. No tenderness to percussion. No pulsatile masses. Equal femoral pulses. No Roberts's sign or McBurney point tenderness. Back; no CVA tenderness bilaterally, no deformities. Neck and back are without deformity as well. No tenderness noted on palpation of the spinous processes. Spinous processes are midline. Cervical, thoracic, and lumbar paraspinal muscles are not tender and are without spasm. : normal external genitalia, without lesions, swelling, masses or tenderness. Musculoskeletal: Extremities, normal range of motion, non-tender, muscle strength 5/5 x 4. Negative Homans signs bilaterally on lower extremity. Distal pulses full symmetrical, no clubbing, cyanosis , edema. Neurological: Speech is clear, alert, and oriented x 4. No motor or sensory deficit, deep tendon reflexes normal, cerebellar intact. Cranial nerves II-XII intact. Psych: Alert and or appropriate, normal affect. Vascular: Good distal pulses, which are equal x4; capillary refill less than 2 seconds. Lymphatic, no lymphadenopathy. Result Diagram: 03/31/2592403/31/25 09 Coagulation Studies Laboratory Tests Test 03/27/25 08:30 D-Dimer 2.38 MG/L FEU (0-0.50) H D-Dimer Comment Problem\Assessment\Plan Assessment & Plan Sepsis 2/2 PNA Community-acquired pneumonia, covering for Gram-positive and Gram-negative Acute hypoxic respiratory failure 2/2 above GRACIA vs CKD Hx CKD, stage III Dehydration Malnutrition, severe New atrial fibrillation w/ RVR likely 2/2 hypoxia- not POA Chronic urinary retention GIB, present prior to admission Grade D esophagitis Gastric outlet obstruction, surgeon Dr. Joshi is on the case Duodenitis Pancreatitis -BUN/Cr 27, Cr 1.9, GFR 35, lactic acid wnl, serum lytes wnl, CT negative, CT chest b/l pneumonia, UA negative for UTI, procal negative, trops negative, hypoxia, tachycardia, Well's score 3, d-dimer 2.46, EKG ectopic atrial tachy at 106bpm no ST elevation/depression -fluid resuscitation, abx, supplemental oxygen, bronchodilator -follow blood cx, renal US, spot urine lytes, ABG, V/Q scan, strict I&Os -03/27: Cr downtrending, CTA negative PE, afib rvr in 150s converted to sinus and rate in 80s-90s after metoprolol tart, one dose digoxin, amiodaron drip; LVEF 50-55%, mild dilation of left atrium, no significant VHD, consulted concrete bucket unloader Dr. Bi Smith who recommends outpatient follow up as afib rvr controlled now -03/28: Tele sinus in 80s-90s. On oral diltiazem, metoprolol, amiodarone -03/29: An episode of melena and drop of Hgb by 2.6g/dL. GI Dr. Hernandez consulted and planned for EGD today but attempt unsuccessful due to severe emesis. NGT ordered but refused by pt. EGD rescheduled for tomorrow. -03/30: EGD re-attempted today. EGD incomplete due to poor visualization due to filled fluids in stomach. Findings notable for Grade D esophagitis, gastric outlet obstruction, stomach filled with fluids. 1600cc fluid output through NGT during EGD. Repeat EGD planned in 1-2 days. On intermittent suction now. NPO, IVF, follow CT abd/pelv w/iv & oral. -03/31: CT abdomen/pelvis shows pancreatitis, duodenitis, high-grade stenosis left common iliac artery. Arterial US/ VLADISLAV to follow. On Zosyn, Zithromax. DVT/VTE Prophylaxis: Eliquis Code Status: Full Code Sepsis Screening Reassessment Date: Apr 01, 2025 Date of Service: Apr 01, 2025 Billing Provider: RED CRAMER MD Common Visit Codes: [id number] INP/OBS CARE(HIGH) RED CRAMER MD Apr 01, 2025 09:42
[2025-04-01] MEDS: albumin (human) 25% 100 ML IV solution IV ONE (11:25)
[2025-04-01] MEDS: normal saline 1000ml 1,000 ML IV ONE (12:20)
[2025-04-01 12:39] LABS: OSMOLALITY 286 MOSM/K (280-300)
[2025-04-01 12:46] LABS: CREATININE 1.28 MG/DL (0.60-1.10); PHOSPHORUS 3.1 MG/DL (2.3-4.5); TOTAL CARBON DIOXIDE 27.6 MMOL/L (24-32); eCRCL 54 ML/MIN; eGFR 55 ML/MIN
--- NOTE | 2025-04-01 12:48 | CONSULTATION REPORT ---
History of Present Illness Providers to CC CC: ROLO SMITH MD ~ Reason for Admit\Admit Dx: Cardiology consultation Refering MD: NORMA History of Present Illness This is a 70-year-old male who presented from [facility] on March 26, 2025 secondary to increased confusion, weakness. Found to be hypotensive. He was found to have a pneumonia, acute kidney injury, malnutrition. He was in atrial fibrillation with rapid ventricular response. He converted to sinus rhythm with amiodarone, diltiazem. Currently receiving diltiazem 180 mg daily, metoprolol tartrate 100 mg b.i.d. and amiodarone 200 mg b.i.d.. He is maintaining sinus rhythm. He has had multiple GI complaints. Has been on an NG tube to low intermittent suction. Attempted EGD. Procedure was limited by gastric fluid levels. Found to have esophagitis and gastric outlet obstruction. He is attempting a gastric emptying study and found to be hypotensive. Cardiology consultation was therefore requested. He has not undergone echocardiogram during this admission. His LVEF was 50-55%. He has moderate aortic stenosis and moderate mitral stenosis. Patient is unable to provide meaningful history. States abdominal pain is better. Denies shortness or breath is able to lay flat. His biggest complaint is wanting to eat. Allergies: Coded Allergies: digoxin (Verified Allergy, Unknown, 03/26/25) lactose (Verified Allergy, Unknown, 10/01/16) Uncoded Allergies: BEES (Allergy, Unknown, 02/26/15) Home Medications Home Medications Active Lopressor tablet* (Metoprolol Tartrate) 25 Mg Tablet 25 Mg PO BID Reported Fleet Enema Extra (Na Phos,M-B/Na Phos,Di-Ba) 19 Gram-7 Gram/197 Ml Enema MAGNESIUM CITRATE oral solution (Magnesium Citrate) 296 Ml Solution 296 Ml PO ONCE 1 Days APLISOL - PPD inj. (Tuberculin,Purif.prot.deriv.) 5 Tub. Unit/0.1 Ml Vial 5 Units ID Tylenol (Acetaminophen) 325 Mg Tablet Imodium A-D (Loperamide HCl) 2 Mg Capsule 1 Cap PO Q8H 5 Days Meclizine HCl 25 Mg Tablet 1 Tab PO Q8H 30 Days Colace (Docusate Sodium) 100 Mg Capsule 1 Cap PO Q12H 30 Days Percocet 10-325 mg Tablet (Oxycodone HCl/Acetaminophen) 10 Mg-325 Mg Tablet 1 Tab PO QID PRN PRN 5 Days Senna (Sennosides) 8.6 Mg Tablet 2 Tab PO Q12H 25 Days Clozapine 50 Mg Tablet 1 Tab PO HS 30 Days Flomax* (Tamsulosin HCl) 0.4 Mg Cap.sr.24h 1 Cap PO DAILY 30 Days Famotidine 20 Mg Tablet 1 Tab PO Q12H 30 Days Ondansetron Odt (Ondansetron HCl) 4 Mg Tab.rapdis 4 Mg PO Aspir 81 (Aspirin) 81 Mg Tablet.dr 1 Tab PO DAILY 30 Days Effexor Xr (Venlafaxine HCl) 150 Mg Cap.er.24h 2 Cap PO DAILY 30 Days Miralax (Polyethylene Glycol 3350) 255 Gm Powder 17 Gm PO DAILY Zocor* (Simvastatin) 20 Mg Tablet 20 Mg PO HS Past Medical History Medical History Comment Patient is unable to provide history. History is taken from previous admission in 2018 which shows a history of BPH and schizophrenia. Sounds like he has chronic urinary retention. Admission diagnoses from [facility] show anemia, chronic kidney disease stage 3, dependence on supplemental oxygen, edema, gastroesophageal laceration hemorrhage syndrome, heart failure unspecified, hyperlipidemia, long-term use of aspirin, orthostatic hypotension, peripheral vascular disease, history of nicotine dependence, polyneuropathy, schizophrenia, macular degeneration, BPH, difficulty walking, history of falls, hypertension, major depressive disorder, chronic pain, spondylosis. Past Surgical History Surgical History Comment From the previous medical record he has had a ventral hernia repair, renal artery stent, vagotomy with pylorplasty, TURP Past Family History Family History: FH: CHF (congestive heart failure) Past Social History Social History Comment Unknown. Patient came from [facility]. Physical Exam Last Vital Signs Recorded: RN Vital Signs have been reviewed: Yes, Temperature: 97.9, Source: Oral, Heart Rate: 82, Respiratory Rate: 16, BP: 100/60, Pulse Oximetry: 93, Weight: 93.000 Physical Exam General: Awake, alert. Confused about events. Lying flat in bed. No acute distress. Neck: Supple. Normal range of motion. No JVD Respiratory: Lungs are clear to auscultation bilaterally. No respiratory distress. Chest: Normal shape and size. No accessory muscle use. Cardiovascular: Regular rate and rhythm. S1-S2. There are multiple murmurs on exam. There is a systolic ejection murmur right upper sternal border. There is also a diastolic murmur left midclavicular line 5-6th intercostal space. Gastrointestinal: Abdomen is large. Nontender to palpation. Extremities: No lower extremity edema, cyanosis or clubbing. Neurologic: Awake, alert. Moving all extremities. Speech clear. Review of Systems ROS Patient states abdominal pain is better. Denies dizziness or lightheadedness currently. No chest pain or pressure. Denies shortness or breath. Was asked, but otherwise denies review of systems. Unable to obtain complete ROS: altered mental status Results EKG EKG Initial EKG atrial fibrillation with rapid ventricular response. Converted to sinus rhythm. Echocardiogram Echocardiogram Conclusion Normal LV size and wall thickness. Overall systolic function is low normal. LVEF is 50-55%. Right ventricle is grossly normal in size and function. Left atrium is mildly dilated. Trileaflet AV is moderately stenostic. DENNIS is measured at 1.30 cmsq. Peak / mean gradients of 41 / 24 mmHG. Peak velocity is measured at 3.20 m/sec. Mild to moderate regurgitation. Moderate mitral annular calcification with moderate stenosis. Peak / mean gradients of 12 / 8 mmHG. Trace regurgitation. Tricuspid valve is grossly normal in structure with trace regurgitation. Normal pericardium. No effusion. Dictated by:MANUELA MONACO MD Dictation date and time:03/27/251900 Other Other Ordering Physician: VINCE GARCIA DO Exam Name: ARTERIAL Technologist: Joshua Armenta Indication: Peripheral arterial disease Technique: Real- time ultrasound images of the bilateral lower extremity with grayscale, color, and spectral wave Doppler. Comparison: None Findings: Diffuse atherosclerotic calcification disease. Biphasic waveforms in the right FRUIT DUMPER, SFA, popliteal, posterior tibial, anterior tibial arteries. Biphasic waveforms left FRUIT DUMPER, SFA artery. Triphasic waveforms left popliteal artery. Monophasic waveform left posterior tibial, peroneal arteries Peak systolic velocities are as follows (in cm/s): Right: Common femoral artery: 269 Profunda femoris: 117 Proximal superficial femoral: 326 Mid superficial femoral artery: 96 Distal superficial femoral artery: 88 Popliteal artery: 84 Posterior tibial artery: 63 Anterior tibial artery: 118 Left: Common femoral artery: 161 Profunda femoris: 76 Proximal superficial femoral: 131 Mid superficial femoral artery: 85 Distal superficial femoral artery: 115 Popliteal artery: 112 Posterior tibial artery: 76 Anterior tibial artery: 91 Impression: High-grade stenosis of the right proximal SFA. Moderate high-grade stenosis of the right common femoral artery. Diffuse atherosclerotic calcification disease. Dictated by:ROBEL SEN MD Dictation date and time:03/31/25 1543 Diagram Lab Result Diagram: 03/31/2592403/31/25924 Assessment/Plan Additional Plan This is a 70-year-old male who presented with multiple medical problems. Cardiology consultation requested for anasarca, CHF and hypotension. The following is his problem list: Congestive heart failure LVEF 50-55% Moderate bilateral pleural effusions Moderate aortic stenosis with aortic valve area 1.30 cm2, mean gradient 24 mm of mercury peak velocity 3.20 m/sec Moderate mitral stenosis with mean gradient 8 mm of mercury --given dehydration currently with GI losses and hypotension, we will give small IV fluid bolus of 100 mL. May require Lasix moving forward. Recommend strict intake and output measurements. Atrial fibrillation with rapid ventricular response on admission Now converted to sinus rhythm since March 27 --stop diltiazem --continue metoprolol for rate control --continue amiodarone 200 mg b.i.d. for one week then 200 mg daily Peripheral arterial disease CTA with high-grade stenosis of the left common iliac artery Lower extremity ultrasound shows high-grade stenosis right SFA and right common femoral artery --no barefoot walking. --recommend high-intensity statin to keep LDL very well controlled. --patient should continue to not smoke --recommend outpatient follow up. If any wounds to the lower extremities please let us know. Pneumonia --management per hospitalist --recommend monitoring for sepsis GI bleed Esophagitis Gastric outlet obstruction Duodenitis Pancreatitis --management per hospitalist. NG tube. IV fluids if needed for dehydration. Schizophrenia --follows with psychiatrist Dr. Smith Case discussed with Dr. Emil Smith. In agreement with the above. Supervising MD Supervising Physician: CB Ely NP Apr 01, 2025 12:48
--- NOTE | 2025-04-01 14:53 | RADIOLOGY REPORT ---
Procedure: NM GASTRIC EMPTYING STDY-DM Exam Date: 04/01/2025 08:40 AM Reason for study/Clinical History: eval for paresis, obstruction Comparison Study: None Nuclear Medicine Solid Gastric Emptying Study Technique: The patient received an oral administration of 1.1 mCi of technetium 99m sulfur colloid l abeled to scrambled eggs as a part of the standardized meal. Images were obtained in the anterior and posterior projection immediately, and at delayed time points to include one, two, and four hours aft er ingestion of the meal. Quantitative data was obtained from these images and the geometric mean for percent gastric retention was determined at multiple time points. Findings: Percent gastric retention is as follows: One hour 89 % retained, (normal greater than or equal to 70%) Two hour 90 % retained, (normal less than or equal to 60%) Four hour 78 % retained, (normal between 0% and 10%) Impression: There is increased gastric retention which may represent gastroparesis or partial gastric obstruction . Clinical correlation advised. *Source: Journal of Nuclear Medicine Technology. Vol.36. No.1. November 2007
--- NOTE | 2025-04-01 19:20 | PATHOLOGY REPORT ---
[facility] [address] [place] [address] SURGICAL PATHOLOGY REPORT CaseNumber: [id number] Surgeon:Leroy Hernandez M.D. CLINICAL INFORMATION CLINICAL INFORMATION: Abd pain, GI bleed. DIAGNOSIS DIAGNOSIS: STOMACH, ANTRUM; BIOPSY - MILD CHRONIC GASTRITIS. - NEGATIVE FOR INTESTINAL METAPLASIA. - NEGATIVE FOR HELICOBACTER PYLORI. MICROSCOPIC DESCRIPTION MICROSCOPIC DESCRIPTION: A single slide of the gastric antral biopsy is reviewed. Present is mild chr onic gastritis. The mucosa is intact without erosion or ulceration. There is no increased number of intraepithelial lymphocytes or neutrophils. The lamina propria is expanded by a slight increased content of fibrous tissue which distorts the glandular architecture to a slight extent. There is no m alignancy. An Alcian blue/PAS stain was performed. The control stains appropriately positive and negative. No intestinal metaplasia is identified. An immunoperoxidase stain was performed. The antibody utilized was to H. pylori. No stainable organisms are identified. (bb) GROSS DESCRIPTION GROSS DESCRIPTION: Received in a container of formalin labeled with the patient's name, number, and " antrum biopsy" is a 0.4 x 0.3 x 0.1 cm piece of buckner tissue. The specimen is entirely submitted as A1. The time at which the specimen was removed was 1038. The time at which the specimen was placed in [facility] was 1038. Electronically signed by: Susan Stevenson M.D. 04/01/2025 6:46:00 PM
[2025-04-02] VITALS (11 sets, daily range): BP systolic 142–170; BP diastolic 61–84; PULSE 80–101; RESP 12–22; TEMP 97–98.4; O2SAT 90–99
[2025-04-02 06:48] LABS: CREATININE 1.18 MG/DL (0.60-1.10); TOTAL CARBON DIOXIDE 27.6 MMOL/L (24-32); eCRCL 58 ML/MIN; eGFR 61 ML/MIN
--- NOTE | 2025-04-02 12:17 | RADIOLOGY REPORT ---
Exam: MR MRI PELVIS History: r/0 R Gluteus abscess Comparison: CT CT ABDOMEN PELVIS W/ IV ORAL CONTRAST on DOS: 03/31/25 Technique: Multisequence multiplanar MRI images of the pelvis were performed. Images were obtained without and with intravenous contrast. Findings: Bladder: Bell catheter in the urinary bladder. Small left anterior bladder diverticulum is present measuring 1.4 cm. Visualized bowel: Visualized portion of the bowel is grossly unremarkable without evidence for obstru ction. Pelvic organs: Prostate gland is suboptimally visualized and may be obscured by Bell catheter or may be surgically absent. Lymphadenopathy: No evidence for pelvic lymphadenopathy. Vasculature: There is normal enhancement of the pelvic vasculature. Ascites: Absent. Musculoskeletal: The bone marrow signal is preserved. Mild to moderate inflammatory change involving the right gluteal muscle overlying the right greater t rochanter. IMPRESSION: Czjm-vz-zlyzizff inflammatory change involving the right lateral gluteal muscles overlying the right greater trochanter. This may represent myositis and/or greater Trochanteric Pain Syndrome (GTPS) or G luteal Tendinopathy. Clinical correlation advised. No fluid collection or abscess.
[2025-04-02] MEDS ORDERED: magnesium sulf-water 4G/100mL 100 ML IV PRN (13:30)
[2025-04-02] MEDS ORDERED: potassium Cl 20 mEq SR tablet PO PRN ×2 (13:30)
[2025-04-02] MEDS ORDERED: magnesium sulf-water 2g/50mL 50 ML IV PRN (13:30)
[2025-04-02] MEDS ORDERED: POTASSIUM CHLORIDE 20 MEQ/15 ML oral solution NG PRN (13:30)
[2025-04-02] MEDS ORDERED: mag hydrox/Alum hydrox/simeth 30ml oral suspension NG PRN (13:31)
[2025-04-02] MEDS ORDERED: ondansetron 4mg rapidly disintigrating tab NG PRN (13:31)
[2025-04-02 13:33] LABS: MEAN PLATELET VOLUME 6.7 FL (7.4-10.4); RED CELL DISTRIBUTION WIDTH 13.5 % (11.5-14.5)
[2025-04-02] MEDS ORDERED: acetaminophen 325mg/10.15ml oral unit dose solution NG PRN ×2 (13:36)
[2025-04-02] MEDS ORDERED: magnesium hydroxide 30ml (MOM) UD suspension NG PRN (13:37)
[2025-04-02 13:46] LABS: CREATININE 1.03 MG/DL (0.60-1.10); TOTAL CARBON DIOXIDE 29.9 MMOL/L (24-32); eCRCL 67 ML/MIN; eGFR 71 ML/MIN
[2025-04-02] MEDS: docusate sodium 100mg/10ml UD cup NG SCH (14:05)
[2025-04-02] MEDS: POTASSIUM CHLORIDE 20 MEQ/15 ML oral solution NG PRN (14:07)
--- NOTE | 2025-04-02 16:12 | ELECTROCARDIOGRAPH REPORT ---
[facility] Test Date: 2025-04-02 Test Time: 16:10:16 Pat Name: AUBREY JAVED Department: [facility] [place] [facility] Patient ID: [id number] Room: [place] [address] A Gender: M Product Tester: : 1955 Requested By: RED CRAMER Order Number: [id number] Reading MD: Dr. JOHN Mason Measurements Intervals [place] Rate: 91 P: 66 [place]: 171 QRS: -27 QRSD: 109 T: 70 QT: 406 QTc: 500 Interpretive Statements Sinus rhythm Anterior infarct, old Electronically Signed On 04-02-2025 19:17:[address] JOHN Mason Please click the below link to view image of tracing.
[2025-04-02] MEDS: GADOTERATE MEGLUMINE 7.5 MMOL/15 ML VIAL IV ONE (17:08)
--- NOTE | 2025-04-02 18:10 | PROGRESS NOTE ---
Daily Progress Note Providers to CC ~ feels better today, awaiting for repeat EGD in the morning, NPO after midnight Central Line/PICC still needed: No Bell-Non Protocol Bell Indications Met/Not Met: F/C Indications Not Met Antibiotic Timeout Antibiotic Ordered?: Yes MRSA Education MRSA Education Provided to pt: Yes Subjective As above Objective Vital Signs Date Time Temp Pulse Resp B/P (MAP) Pulse Ox O2 Delivery O2 Flow Rate FiO2 04/02/25 16:26 96 Room Air* 0 21 04/02/25 15:08 98 18 04/02/25 15:00 97.0 156/70 (98) Vital signs, stable ,afebrile. Pulse Oximetry reflects adequate oxygenation. General: well developed, well nourished. Awake , alert, and oriented x4, resting comfortably in the bed, in no acute distress . Skin: Warm, dry, no pallor, no rash or petechiae. HEENT: Atraumatic, normocephalic, EOMI, anicteric sclera B; pink conjunctiva; PERRLA, normal oropharynx, moist oral and nasal mucosa. Tympanic membrane , nose , throat clear. Neck: Trachea midline. Supple, full range of motion, no JVD, bruit , hepatojugular reflex , lymphadenopathy or masses, or other lesions Cardiac: Regular rhythm, regular rate no murmurs, rubs, or gallops. Normal S1 and S2, no S3 noticed. PMI is normal. Respiratory: Equal breath sounds bilaterally, no tachypnea; lungs clear to auscultation bilaterally, no wheezing ,rub or rales, or crackles. Chest wall is symmetric and without deformity. No signs of trauma. Chest wall is nontender. No signs of respiratory distress. Resonance is normal upon percussion bilaterally. Gastrointestinal: Abdomen symmetric, non-distended, soft, non-tender, normal bowel sounds x4 quadrant, normoactive, no hepatosplenomegaly , no masses , no bruit, no flank pain bilaterally. No voluntary guarding, rebound, or rigidity. No tenderness to percussion. No pulsatile masses. Equal femoral pulses. No Roberts's sign or McBurney point tenderness. Back; no CVA tenderness bilaterally, no deformities. Neck and back are without deformity as well. No tenderness noted on palpation of the spinous processes. Spinous processes are midline. Cervical, thoracic, and lumbar paraspinal muscles are not tender and are without spasm. : normal external genitalia, without lesions, swelling, masses or tenderness. Musculoskeletal: Extremities, normal range of motion, non-tender, muscle strength 5/5 x 4. Negative Homans signs bilaterally on lower extremity. Distal pulses full symmetrical, no clubbing, cyanosis , edema. Neurological: Speech is clear, alert, and oriented x 4. No motor or sensory deficit, deep tendon reflexes normal, cerebellar intact. Cranial nerves II-XII intact. Psych: Alert and or appropriate, normal affect. Vascular: Good distal pulses, which are equal x4; capillary refill less than 2 seconds. Lymphatic, no lymphadenopathy. Result Diagram: 04/02/25 1323 04/02/25 1323 Coagulation Studies Laboratory Tests Test 03/27/25 08:30 D-Dimer 2.38 MG/L FEU (0-0.50) H D-Dimer Comment Problem\Assessment\Plan Assessment & Plan Sepsis 2/2 PNA Community-acquired pneumonia, covering for Gram-positive and Gram-negative Acute hypoxic respiratory failure 2/2 above GRACIA vs CKD Hx CKD, stage III Dehydration Malnutrition, severe New atrial fibrillation w/ RVR likely 2/2 hypoxia- not POA Chronic urinary retention GIB, present prior to admission Grade D esophagitis Gastroparesis Duodenitis Pancreatitis -BUN/Cr 27, Cr 1.9, GFR 35, lactic acid wnl, serum lytes wnl, CT negative, CT chest b/l pneumonia, UA negative for UTI, procal negative, trops negative, hypoxia, tachycardia, Well's score 3, d-dimer 2.46, EKG ectopic atrial tachy at 106bpm no ST elevation/depression -fluid resuscitation, abx, supplemental oxygen, bronchodilator -follow blood cx, renal US, spot urine lytes, ABG, V/Q scan, strict I&Os -03/27: Cr downtrending, CTA negative PE, afib rvr in 150s converted to sinus and rate in 80s-90s after metoprolol tart, one dose digoxin, amiodaron drip; LVEF 50-55%, mild dilation of left atrium, no significant VHD, consulted software systems architect Dr. Bi Smith who recommends outpatient follow up as afib rvr controlled now -7/25: Tele sinus in 80s-90s. On oral diltiazem, metoprolol, amiodarone -03/29: An episode of melena and drop of Hgb by 2.6g/dL. GI Dr. Hernandez consulted and planned for EGD today but attempt unsuccessful due to severe emesis. NGT ordered but refused by pt. EGD rescheduled for tomorrow. -03/30: EGD re-attempted today. EGD incomplete due to poor visualization due to filled fluids in stomach. Findings notable for Grade D esophagitis, gastric outlet obstruction, stomach filled with fluids. 1600cc fluid output through NGT during EGD. Repeat EGD planned in 1-2 days. On intermittent suction now. NPO, IVF, follow CT abd/pelv w/iv & oral. Awaiting for EGD in the morning -03/31: CT abdomen/pelvis shows pancreatitis, duodenitis, high-grade stenosis left common iliac artery. Arterial US/ VLADISLAV to follow. On Zosyn, Zithromax. DVT/VTE Prophylaxis: Eliquis Code Status: Full Code Sepsis Screening Reassessment Date: Apr 02, 2025 Date of Service: Apr 02, 2025 Billing Provider: RED CRAMER MD Common Visit Codes: [id number] INP/OBS CARE(HIGH) RED CRAMER MD Apr 02, 2025 18:10
--- NOTE | 2025-04-02 18:39 | RADIOLOGY REPORT ---
CHEST RADIOGRAPH REASON FOR EXAM: Shortness of breath COMPARISON: CT CTA CHEST PE W/ IV CONTRAST on DOS: 03/27/25, NM NM LUNGS on DOS: 03/27/25, DI CHEST,SIN GLE VIEW on DOS: 03/27/25, CT CT CHEST on DOS: 03/26/25, DI CHEST,SINGLE VIEW on DOS: 03/26/25 TECHNIQUE: One view of the chest is provided FINDINGS: The cardiomediastinal silhouette is within normal limits for size. There is an enteric tube with the tip and side hole projecting over the mid to distal esophagus. There is diffuse interstitia l prominence likely representing interstitial pulmonary edema. There are small bilateral pleural effu sions. There is no pneumothorax. There is no lobar consolidation. No acute osseous abnormality is i dentified. IMPRESSION: Enteric tube tip and side hole project over the mid to distal esophagus. Advancement approximately 2 0 cm is recommended. Diffuse interstitial prominence likely represents interstitial pulmonary edema. Diffuse pneumonitis is also a consideration.
--- NOTE | 2025-04-02 19:59 | PROGRESS NOTE ---
Progress Note Dictate Providers to CC CC: ROLANDA CAMARGO MD ~ Progress Note: I was asked to see the patient for possible pyloric stenosis. I reviewed the patient's chart and medical history I reviewed EGD procedures dating back three years. All of the seem to show a consistent finding of retained food and fluid within the stomach Most recent EGD showed normal appearance of the duodenum The patient is clinical condition and progression seems most consistent with gastroparesis There was concern for protein calorie malnutrition Recommendations: -Consult dietitian for individualized dietary advice and nutritional supplementation as needed -monitor for correct micronutrient deficiencies -use antiemetics for nausea and vomiting as well as prokinetic agents such as metoclopramide as first-line therapy -if oral intake remains an adequate consider initiation of oral liquid nutrition supplements -if nutrition still inadequate consider enteral nutrition via a jejunal tube feeding (began with nasojejunal feeding trial before consideration of percutaneous jejunostomy or gastrojejunostomy) -consider parenteral nutrition only if unable to gain access for enteral nutrition -if symptoms are refractory to diet and medication, consider interventions such as gastric peroral endoscopic myotomy (POEM) or gastric pacemaker In these scenarios, surgery would be the last intervention and all other should be undertaken/attempted 1st. Antibiotic Ordered?: N/A Objective Vitals Vital Signs Date Time Temp Pulse Resp B/P (MAP) Pulse Ox O2 Delivery O2 Flow Rate FiO2 04/02/25 16:26 96 Room Air* 0 21 04/02/25 15:08 98 18 04/02/25 15:00 97.0 156/70 (98) Lab Results: 04/02/25 1323 04/02/25 1323 Coagulation Studies Laboratory Tests Test 03/27/25 08:30 D-Dimer 2.38 MG/L FEU (0-0.50) H D-Dimer Comment ROLANDA CAMARGO MD Apr 02, 2025 19:59
[2025-04-02] MEDS: diazepam inj 5 MG/ML inj. IV ONE (22:02)
[2025-04-02] MEDS: MVI, adult No.4 with vit. K 10 ML in dextrose 5% water 500ml 500 ML IV SCH (22:12)
[2025-04-02] MEDS: FAT EMUL/SOY/MCT/OLIV/FISH OIL (SMOF) 100 ML IV SCH (22:12)
--- NOTE | 2025-04-02 23:48 | RADIOLOGY REPORT ---
Exam: DI ABDOMEN,SINGLE VIEW(KUB) Indication: NGT Insertion Comparison: CT CT ABDOMEN PELVIS W/ IV ORAL CONTRAST on DOS: 03/31/25, US ULTRASOUND OF ABDOMEN on D OS: 03/31/25, US ULTRASOUND KIDNEY NON VASC on DOS: 03/26/25 Technique: Single radiographic view of the abdomen. Findings: Enteric catheter terminates just right of midline within the central abdomen, presumably within the g astric lumen. Nonobstructive bowel gas pattern noted. There is no definite evidence for pneumoperitoneum. No abnorm al calcifications noted. Nonobstructive bowel gas pattern noted. There is no definite evidence for pneumoperitoneum. No abnormal calcifications noted. Impression: 1. Nonobstructive bowel gas pattern noted. 2. Enteric catheter.
[2025-04-03] VITALS (33 sets, daily range): BP systolic 133–196; BP diastolic 58–111; PULSE 89–111; RESP 11–25; TEMP 97.1–98.6; O2SAT 90–100
[2025-04-03] MEDS: albuterol 2.5 MG/3 ML nebule NEB PRN (02:03)
--- NOTE | 2025-04-03 02:23 | ELECTROCARDIOGRAPH REPORT ---
[facility] Test Date: 2025-04-03 Test Time: 02:20:44 Pat Name: AUBREY JAVED Department: [facility] Patient ID: [id number] Room: [place] [id number] A Gender: M Nut Tightener: : 1955 Requested By: CAHD CAUSEY Order Number: [id number] Reading MD: Dr. JOHN Mason Measurements Intervals [place] Rate: 91 P: 79 [place]: 173 QRS: 61 QRSD: 110 T: 78 QT: 393 QTc: 484 Interpretive Statements Sinus rhythm Anterior infarct, old Minimal ST depression, lateral leads Electronically Signed On 04-03-2025 11:30:[address] JOHN Mason Please click the below link to view image of tracing.
[2025-04-03] MEDS: diazepam inj 5 MG/ML inj. IV ONE (02:40)
[2025-04-03] MEDS ORDERED: LIDOcaine 2% Viscous 15ml cup ONE (08:42)
[2025-04-03] MEDS ORDERED: simethicone 40mg/0.6ml oral drops 30ml ONE (08:50)
[2025-04-03] MEDS ORDERED: MIDAZolam 1 MG/ML 5ML VIAL ONE (08:52)
[2025-04-03] MEDS ORDERED: fentaNYL/PF 50MCG/1 ML 2ML syringe ONE (08:52)
[2025-04-03 11:28] LABS: CREATININE 1.15 MG/DL (0.60-1.10); PHOSPHORUS 2.7 MG/DL (2.3-4.5); TOTAL CARBON DIOXIDE 29.4 MMOL/L (24-32); eCRCL 60 ML/MIN; eGFR 63 ML/MIN
--- NOTE | 2025-04-03 11:42 | PROGRESS NOTE ---
Daily Progress Note Providers to CC Feels better today, ready to go to GI lab for EGD Central Line/PICC still needed: No Bell-Non Protocol Bell Indications Met/Not Met: F/C Indications Not Met Antibiotic Timeout Antibiotic Ordered?: Yes MRSA Education MRSA Education Provided to pt: Yes Subjective As above Objective Vital Signs Date Time Temp Pulse Resp B/P (MAP) Pulse Ox O2 Delivery O2 Flow Rate FiO2 04/03/25 11:08 95 04/03/25 10:08 18 155/78 99 Nasal Cannula 4.0 04/03/25 06:00 97.4 04/03/25 02:06 24 Vital signs, stable ,afebrile. Pulse Oximetry reflects adequate oxygenation on 4 L oxygen nasal cannula General: well developed, well nourished. Awake , alert, and oriented x4, resting comfortably in the bed, in no acute distress . Skin: Warm, dry, no pallor, no rash or petechiae. HEENT: Atraumatic, normocephalic, EOMI, anicteric sclera B; pink conjunctiva; PERRLA, normal oropharynx, moist oral and nasal mucosa. Tympanic membrane , nose , throat clear. Neck: Trachea midline. Supple, full range of motion, no JVD, bruit , hepatojugular reflex , lymphadenopathy or masses, or other lesions Cardiac: Regular rhythm, regular rate no murmurs, rubs, or gallops. Normal S1 and S2, no S3 noticed. PMI is normal. Respiratory: Equal breath sounds bilaterally, no tachypnea; lungs clear to auscultation bilaterally, no wheezing ,rub or rales, or crackles. Chest wall is symmetric and without deformity. No signs of trauma. Chest wall is nontender. No signs of respiratory distress. Resonance is normal upon percussion bilaterally. Gastrointestinal: Abdomen symmetric, non-distended, soft, non-tender, normal bowel sounds x4 quadrant, normoactive, no hepatosplenomegaly , no masses , no bruit, no flank pain bilaterally. No voluntary guarding, rebound, or rigidity. No tenderness to percussion. No pulsatile masses. Equal femoral pulses. No Roberts's sign or McBurney point tenderness. Back; no CVA tenderness bilaterally, no deformities. Neck and back are without deformity as well. No tenderness noted on palpation of the spinous processes. Spinous processes are midline. Cervical, thoracic, and lumbar paraspinal muscles are not tender and are without spasm. : normal external genitalia, without lesions, swelling, masses or tenderness. Musculoskeletal: Extremities, normal range of motion, non-tender, muscle strength 5/5 x 4. Negative Homans signs bilaterally on lower extremity. Distal pulses full symmetrical, no clubbing, cyanosis , edema. Neurological: Speech is clear, alert, and oriented x 4. No motor or sensory deficit, deep tendon reflexes normal, cerebellar intact. Cranial nerves II-XII intact. Psych: Alert and or appropriate, normal affect. Vascular: Good distal pulses, which are equal x4; capillary refill less than 2 seconds. Lymphatic, no lymphadenopathy. Result Diagram: 04/02/25 1323 04/03/25 1106 Coagulation Studies Laboratory Tests Test 03/27/25 08:30 D-Dimer 2.38 MG/L FEU (0-0.50) H D-Dimer Comment Problem\Assessment\Plan Assessment & Plan Sepsis 2/2 PNA Community-acquired pneumonia, covering for Gram-positive and Gram-negative Acute hypoxic respiratory failure 2/2 above GRACIA vs CKD Hx CKD, stage III PVD, a right SF artery severe stenosis, Dr. Wilkes is on the case , appreciate assistance and expertise Malnutrition, severe New atrial fibrillation w/ RVR likely 2/2 hypoxia- not POA Chronic urinary retention GIB, present prior to admission today EGD was completed Grade D esophagitis Gastroparesis, was evaluated by interventional radiologist Who recommended to continue current treatment, and if this treatment fails recommended J-tube placement by general surgeon Duodenitis Pancreatitis -BUN/Cr 27, Cr 1.9, GFR 35, lactic acid wnl, serum lytes wnl, CT negative, CT chest b/l pneumonia, UA negative for UTI, procal negative, trops negative, hypoxia, tachycardia, Well's score 3, d-dimer 2.46, EKG ectopic atrial tachy at 106bpm no ST elevation/depression -fluid resuscitation, abx, supplemental oxygen, bronchodilator -follow blood cx, renal US, spot urine lytes, ABG, V/Q scan, strict I&Os -03/27: Cr downtrending, CTA negative PE, afib rvr in 150s converted to sinus and rate in 80s-90s after metoprolol tart, one dose digoxin, amiodaron drip; LVEF 50-55%, mild dilation of left atrium, no significant VHD, consulted eap consultant Dr. Bi Smith who recommends outpatient follow up as afib rvr controlled now -03/28: Tele sinus in 80s-90s. On oral diltiazem, metoprolol, amiodarone -03/29: An episode of melena and drop of Hgb by 2.6g/dL. GI Dr. Hernandez consulted and planned for EGD today but attempt unsuccessful due to severe emesis. NGT ordered but refused by pt. EGD rescheduled for tomorrow. -03/30: EGD re-attempted today. EGD incomplete due to poor visualization due to filled fluids in stomach. Findings notable for Grade D esophagitis, gastric outlet obstruction, stomach filled with fluids. 1600cc fluid output through NGT during EGD. Repeat EGD planned in 1-2 days. On intermittent suction now. NPO, IVF, follow CT abd/pelv w/iv & oral. Awaiting for EGD in the morning -03/31: CT abdomen/pelvis shows pancreatitis, duodenitis, high-grade stenosis left common iliac artery. Arterial US/ VLADISLAV to follow. On Zosyn, Zithromax. DVT/VTE Prophylaxis: Eliquis Code Status: Full Code Date of Service: Apr 03, 2025 Billing Provider: RED CRAMER MD Common Visit Codes: [id number] INP/OBS CARE(HIGH) RED CRAMER MD Apr 03, 2025 11:42
[2025-04-03] MEDS: potassium Cl 40MEQ/1/2NS 520ml 520 ML IV PRN (12:38)
[2025-04-03] MEDS ORDERED: iohexol 350 MG/ML 50ML vial IV ONE (12:51)
[2025-04-03] MEDS ORDERED: diazepam 2mg tablet PO PRN (13:50)
[2025-04-03] MEDS: diazepam 2mg tablet PO PRN (15:38)
[2025-04-03] MEDS: hydrALAZINE 20mg/ml inj. IV PRN (16:38)
--- NOTE | 2025-04-03 19:13 | RADIOLOGY REPORT ---
EXAM: CT CTA ABDOMEN LOWER EXTR RUNOFF HISTORY: pad COMPARISON: MR MRI PELVIS on DOS: 04/02/25 TECHNIQUE: CT angiogram of the abdomen and pelvis. CT scans at this facility use dose modulation, ite rative reconstruction, and/or weight based dosing when appropriate to reduce radiation dose to as low as reasonably achievable. 100 mL of low osmolar contrast was administered without adverse effect. 3- D postprocessing was performed on a separate workstation under radiologist supervision. MIPs were cre ated. VASCULAR FINDINGS: * Severe narrowing of the celiac artery origin and superior mesenteric artery origins likely greater than 90 percent with prominent calcification. Suspected severe narrowing of the inferior mesenteric a rtery origin. * Prominent mixed atherosclerotic plaque along bilateral renal arteries and bilateral common iliac ar teries with greater than 50 percent estimated stenosis of the left proximal external iliac artery. E ndovascular stent in the right common iliac artery. Suspected stents along proximal renal arteries. * In the right lower extremity, poor distal opacification of the plantar arteries and peroneal artery . Scattered atherosclerotic plaque along the common femoral arteries. In the left lower extremity, poor distal opacification of the plantar and peroneal and anterior tibi al arteries. * Infrarenal abdominal aortic ectasia measuring 2.9 cm NON-VASCULAR FINDINGS: [LUNG BASES]: Medium bilateral pleural effusions. Atelectasis in lung bases. The cardiac size is norm al without pericardial effusion. [LIVER]: Normal hepatic size without suspicious focal lesion. [GALLBLADDER AND BILIARY TREE]: No cholelithiasis. No biliary dilatation. [SPLEEN]: Unremarkable. [PANCREAS]: No pancreatic ductal dilation. Peripancreatic small areas of presumed fluid collections / cysts measuring up to 3.3 cm along the margin of the pancreatic head. [ADRENAL GLANDS]: Unremarkable [KIDNEYS]: No hydronephrosis. No nephroureterolithiasis. No suspicious focal lesion. [BLADDER]: Circumferential bladder wall thickening, which may be seen in the setting of acute versus chronic cystitis and correlate with urinalysis. Bell catheter in place with intravesicular air [PELVIC ORGANS]: Unremarkable. [BOWEL/MESENTERY]: Enteric tube extending into the distal stomach. Inconspicuous air-fluid levels in the transverse colon without abnormal dilation. Mild stool burden in the high to low rectum. Correl ate for constipation. Minimal proximal sigmoid diverticulosis [ASCITES]: Absent [LYMPHADENOPATHY]: No pathologically enlarged lymph nodes by CT size criteria [ABDOMINAL WALL]: Small fat containing right inguinal hernia [MUSCULOSKELETAL]: No acute fracture or aggressive focal osseous lesion. Multifocal degenerative olivarez ge of the visualized spine. IMPRESSION: 1. No complete arterial occlusion however poor distal opacification of the plantar and dorsalis pedis arteries most significant in the left. 2. Severe narrowing of the celiac, superior mesenteric, inferior mesenteric artery origins however no rmal distal opacification. 3. Prominent mixed atherosclerotic plaque along bilateral renal arteries and bilateral common iliac a rteries with greater than 50 percent estimated stenosis of the left proximal external iliac artery. 4. Medium bilateral pleural effusions. 5. Circumferential bladder wall thickening, which may be seen in the setting of acute versus chronic cystitis and correlate with urinalysis. 6. Peripancreatic presumed fluid collections /cysts measuring up to 3.3 cm along the margin of the pa ncreatic head, similar to prior examination.
[2025-04-04 02:00] VITALS: BP 172/82; PULSE 105; RESP 15; TEMP 98.3; O2SAT 99
[2025-04-04 04:11] VITALS: BP 143/62
[2025-04-04 06:00] VITALS: BP 157/89; PULSE 99; RESP 12; TEMP 98.3; O2SAT 100
[2025-04-04 06:48] LABS: MEAN PLATELET VOLUME 6.6 FL (7.4-10.4); RED CELL DISTRIBUTION WIDTH 13.4 % (11.5-14.5)
[2025-04-04 07:25] LABS: CREATININE 1.10 MG/DL (0.60-1.10); PHOSPHORUS 3.6 MG/DL (2.3-4.5); TOTAL CARBON DIOXIDE 27.8 MMOL/L (24-32); eCRCL 63 ML/MIN; eGFR 66 ML/MIN
[2025-04-04 11:00] VITALS: BP 158/77; PULSE 94; RESP 14; TEMP 97.8; O2SAT 99
[2025-04-04 12:33] LABS: CREATININE 1.15 MG/DL (0.60-1.10); TOTAL CARBON DIOXIDE 33.4 MMOL/L (24-32); eCRCL 60 ML/MIN; eGFR 63 ML/MIN
--- NOTE | 2025-04-04 13:40 | PROGRESS NOTE- Residence ---
Progress Note - Resident Providers to CC Resident Creating Document: ROSEANNE PEREZ RES ~ Antibiotic Timeout Antibiotic Ordered?: No Subjective Patient was seen and examined at bedside, output from NG tube has decreased, full liquid diet for now, advance diet as tolerated. Objective Vital Signs Date Time Temp Pulse Resp B/P (MAP) Pulse Ox O2 Delivery O2 Flow Rate FiO2 04/04/25 09:33 99 04/04/25 04:11 143/62 (89) 04/04/25 02:00 98.3 15 99 Nasal Cannula 3.0 04/03/25 18:54 32 Result Diagram: 04/04/25 0607 04/04/25 1134 General: Awake, alert. No acute distress Neck: Supple. Normal range of motion. No JVD Respiratory: Lungs are clear to auscultation bilaterally. No respiratory distress. Chest: Normal shape and size. No accessory muscle use. Cardiovascular: Regular rate and rhythm. S1-S2. systolic ejection murmur right upper sternal border. There is also a diastolic murmur left midclavicular line 5-6th intercostal space. Gastrointestinal: Abdomen is soft, slightly distended today. Nontender to palpation. Extremities: No lower extremity edema, cyanosis or clubbing. Neurologic: Awake, alert. No FNDs Coagulation Studies Laboratory Tests Test 03/27/25 08:30 D-Dimer 2.38 MG/L FEU (0-0.50) H D-Dimer Comment Advance Care Planning Advanced Care plannin - 30 Minutes Plan Plan 1. Upper GI Bleed likely secondary to esophagitis GOO Initial melena with 2.6 g/dL Hgb drop on 03/29. First EGD attempt aborted due to active emesis. Second EGD (03/30) incomplete due to fluid retention; ~1600 cc fluid drained via NGT. Third EGD performed yesterday (03/31) revealed severe mucosal edema at the level of the gastric outlet, scope was unable to be advanced beyond the antrum, consistent with functional or partial mechanical gastric outlet obstruction. No active bleeding noted. Plan: Continue high-dose IV PPI (pantoprazole) Resume Eliquis cautiously as no active bleeding seen and patient is now tolerating PO Monitor hemoglobin trends 2. Gastric Outlet Obstruction (GOO) likely multifactorial (gastroparesis + edema/inflammation) EGD findings consistent with outlet narrowing due to edema/inflammation No definitive obstructing mass or ulcer noted (visualization limited) Conservative management appears effective thus far Plan: NGT can be discontinued at this time as output has decreased and patient is clinically stable Continue full liquid diet, advance diet slowly as tolerated Monitor for recurrence of nausea, vomiting, or abdominal distension 3. Grade D Esophagitis (LA classification) Seen on prior endoscopy (03/30) Likely secondary to severe reflux and delayed gastric emptying Plan: Continue IV PPI for now; plan to switch to oral formulation as patient tolerates PO Long-term acid suppression needed Avoid NSAIDs; GI prophylaxis senior care 4. Gastroparesis (history of) May be contributing to functional component of GOO IR previously recommended conservative therapy; J-tube only if fails Plan: Conservative management to continue Monitor nutritional status, weight, and caloric intake If diet fails or obstruction recurs, reevaluate for J-tube or surgical options 5. Duodenitis / Pancreatitis (seen on CT A/P) Not visualized endoscopically due to incomplete access Likely reactive inflammation Plan: Supportive care only Resume oral intake cautiously No further GI intervention needed unless worsening clinical picture Disposition Patient with recent EGD showing severe edema at gastric outlet, consistent with partially reversible gastric outlet obstruction. NG tube can be removed. Recommend trial of full liquid diet today, advance diet as tolerated, and continue conservative management. No further endoscopic evaluation at this time unless clinical deterioration. Roseanne Perez MD Internal Medicine Resident, PGY-2 Date of Service: Apr 04, 2025 Billing Provider: LINSEY VIZCAINO MD, GAURAV, RES Apr 04, 2025 13:40
--- NOTE | 2025-04-04 14:33 | PROGRESS NOTE ---
Progress Note ID Providers to CC ~ Progress Note Progress Note: CTA WITHOUT SIGNIFICANT OBSTRUCTIVE DISEASE-PT CAN BE SEEN AN OUTPATIENT ALEJANDRO ZAYAS MD Apr 04, 2025 14:33
[2025-04-04 15:00] VITALS: BP 149/61; PULSE 96; RESP 16; TEMP 97.7; O2SAT 98
--- NOTE | 2025-04-04 18:19 | DISCHARGE SUMMARY ---
Discharge Summary Providers to No new complaint today, ready to be transferred to rehab facility ~ Discharge Summary Assessment Sepsis 2/2 PNA Community-acquired pneumonia, covering for Gram-positive and Gram-negative Acute hypoxic respiratory failure 2/2 above CHF preserved ejection fraction in exacerbation GRACIA vs CKD Hx CKD, stage III Dehydration Gastroparesis Malnutrition, severe Admission Diagnosis: metabolic encephalopathy, GRACIA Admission Diagnosis Comment: Sepsis 2/2 PNA Community-acquired pneumonia, covering for Gram-positive and Gram-negative Acute hypoxic respiratory failure 2/2 above CHF preserved ejection fraction in exacerbation GRACIA vs CKD Hx CKD, stage III Dehydration Gastroparesis Malnutrition, severe Hospital Course DATE OF ADMISSION: March 26, 2025 DATE OF DISCHARGE: April 04, 2025 Discharge Diagnosis\Comment: Sepsis 2/2 PNA Community-acquired pneumonia, covering for Gram-positive and Gram-negative Acute hypoxic respiratory failure 2/2 above CHF preserved ejection fraction in exacerbation GRACIA vs CKD Hx CKD, stage III Dehydration Gastroparesis Malnutrition, severe Operations\Procedures: EGD Consultants: GI doctor, vascular surgeon, Cardiology Service Complications: Non Condition on DC: Stable for transfer Discharge Summary: Inderjit Thomas is a 70-year-old male with history of CKD stage III who was brought to the ED from [facility] in [place] due to confusion x 3 days. According to staff the patient is normally A&O x3. Patient has been eating and drinking less and becoming increasingly generally weak over the last three days. Today staff found him to be hypotensive but did not provide paramedics with any readings, though patient's initial BP taken by paramedics was soft with systolic in 100s. Paramedics found the patient to be generally weak and to have a pulse ox in the low 90s. They placed him on 2 L of oxygen. Patient states that he has not urinated since last night. During initial assessment, patient is awake but confused hence history taking is limited. Initial diagnostic findings were notable for signs of sepsis and hypoxia requiring supplemental oxygen. Patient is to be admitted for further workups and treatment. After admission patient was extensively evaluated was diagnosed with gastroparesis started on PPN, he tolerates p.o. fluids today and clear fluids, diet ready to be discharged to rehab facility, today on physical exam Vital signs, stable ,afebrile. Pulse Oximetry reflects adequate oxygenation. General: well developed, well nourished. Awake , alert, and oriented x4, resting comfortably in the bed, in no acute distress . Skin: Warm, dry, no pallor, no rash or petechiae. HEENT: Atraumatic, normocephalic, EOMI, anicteric sclera B; pink conjunctiva; PERRLA, normal oropharynx, moist oral and nasal mucosa. Tympanic membrane , nose , throat clear. Neck: Trachea midline. Supple, full range of motion, no JVD, bruit , hepatojugular reflex , lymphadenopathy or masses, or other lesions Cardiac: Regular rhythm, regular rate no murmurs, rubs, or gallops. Normal S1 and S2, no S3 noticed. PMI is normal. Respiratory: Equal breath sounds bilaterally, no tachypnea; lungs clear to auscultation bilaterally, no wheezing ,rub or rales, or crackles. Chest wall is symmetric and without deformity. No signs of trauma. Chest wall is nontender. No signs of respiratory distress. Resonance is normal upon percussion bilaterally. Gastrointestinal: Abdomen symmetric, non-distended, soft, non-tender, normal bowel sounds x4 quadrant, normoactive, no hepatosplenomegaly , no masses , no bruit, no flank pain bilaterally. No voluntary guarding, rebound, or rigidity. No tenderness to percussion. No pulsatile masses. Equal femoral pulses. No Roberts's sign or McBurney point tenderness. Back; no CVA tenderness bilaterally, no deformities. Neck and back are without deformity as well. No tenderness noted on palpation of the spinous processes. Spinous processes are midline. Cervical, thoracic, and lumbar paraspinal muscles are not tender and are without spasm. : normal external genitalia, without lesions, swelling, masses or tenderness. Musculoskeletal: Extremities, normal range of motion, non-tender, muscle strength 5/5 x 4. Negative Homans signs bilaterally on lower extremity. Distal pulses full symmetrical, no clubbing, cyanosis , edema. Neurological: Speech is clear, alert, and oriented x 4. No motor or sensory deficit, deep tendon reflexes normal, cerebellar intact. Cranial nerves II-XII intact. Psych: Alert and or appropriate, normal affect. Vascular: Good distal pulses, which are equal x4; capillary refill less than 2 seconds. Lymphatic, no lymphadenopathy. *Problems/Diagnosis: (1) Pneumonia Total Time Spent on D/C: > 30 Minutes Date of Service: Apr 04, 2025 Billing Provider: ERD CRAMER MD Common Visit Codes: 07509-FCG/OBS DISCH DAY >30min RED CRAMER MD Apr 04, 2025 18:19
== END 2025-04-04 17:38 | DRG 871 ==
LOC: ER 13:51 → ED HOLD 17:23 → ORTHO 4S 21:05 → PCU 3S 03-27 09:00
PROVIDERS: ADMIT Nurse Practitioner Family; ATTEND Nurse Practitioner Family
PROC: B32T1ZZ Computerized Tomography (CT Scan) of Left Pulmonary Artery using Low Osmolar Contrast (ICD-10-PCS; 2025-03-27)
PROC: B3201ZZ Computerized Tomography (CT Scan) of Thoracic Aorta using Low Osmolar Contrast (ICD-10-PCS; 2025-03-27)
PROC: B32S1ZZ Computerized Tomography (CT Scan) of Right Pulmonary Artery using Low Osmolar Contrast (ICD-10-PCS; 2025-03-27)
PROC: CB121ZZ Planar Nuclear Medicine Imaging of Lungs and Bronchi using Technetium 99m (Tc-99m) (ICD-10-PCS; 2025-03-27)
PROC: 0DJ08ZZ Inspection of Upper Intestinal Tract, Via Natural or Artificial Opening Endoscopic (ICD-10-PCS; 2025-03-29)
PROC: 0DB78ZX Excision of Stomach, Pylorus, Via Natural or Artificial Opening Endoscopic, Diagnostic (ICD-10-PCS; 2025-03-30)
PROC: 0D9680Z Drainage of Stomach with Drainage Device, Via Natural or Artificial Opening Endoscopic (ICD-10-PCS; principal; 2025-03-30 10:10)
PROC: BW211ZZ Computerized Tomography (CT Scan) of Abdomen and Pelvis using Low Osmolar Contrast (ICD-10-PCS; 2025-03-31)
PROC: 0D9680Z Drainage of Stomach with Drainage Device, Via Natural or Artificial Opening Endoscopic (ICD-10-PCS; 2025-04-03)
PROC: B4201ZZ Computerized Tomography (CT Scan) of Abdominal Aorta using Low Osmolar Contrast (ICD-10-PCS; 2025-04-03)
PROC: B4241ZZ Computerized Tomography (CT Scan) of Superior Mesenteric Artery using Low Osmolar Contrast (ICD-10-PCS; 2025-04-03)
PROC: B4281ZZ Computerized Tomography (CT Scan) of Bilateral Renal Arteries using Low Osmolar Contrast (ICD-10-PCS; 2025-04-03)
PROC: B42C1ZZ Computerized Tomography (CT Scan) of Pelvic Arteries using Low Osmolar Contrast (ICD-10-PCS; 2025-04-03)
PROC: B42H1ZZ Computerized Tomography (CT Scan) of Bilateral Lower Extremity Arteries using Low Osmolar Contrast (ICD-10-PCS; 2025-04-03)
PROC: B4211ZZ Computerized Tomography (CT Scan) of Celiac Artery using Low Osmolar Contrast (ICD-10-PCS; 2025-04-03)
PROC: 0D968ZX Drainage of Stomach, Via Natural or Artificial Opening Endoscopic, Diagnostic (ICD-10-PCS; 2025-04-03)
DX: A41.9 Sepsis, unspecified organism (principal); E43 Unspecified severe protein-calorie malnutrition; J96.01 Acute respiratory failure with hypoxia; K85.90 Acute pancreatitis without necrosis or infection, unspecified; K21.01 Gastro-esophageal reflux disease with esophagitis, with bleeding; I50.33 Acute on chronic diastolic (congestive) heart failure; J15.69 Pneumonia due to other Gram-negative bacteria; J15.9 Unspecified bacterial pneumonia; N17.9 Acute kidney failure, unspecified; I48.20 Chronic atrial fibrillation, unspecified; I13.0 Hypertensive heart and chronic kidney disease with heart failure and stage 1 through stage 4 chronic kidney disease, or unspecified chronic kidney disease; K31.1 Adult hypertrophic pyloric stenosis; I48.91 Unspecified atrial fibrillation; E78.5 Hyperlipidemia, unspecified; E86.0 Dehydration; K31.84 Gastroparesis; F25.9 Schizoaffective disorder, unspecified; I08.0 Rheumatic disorders of both mitral and aortic valves; N18.30 Chronic kidney disease, stage 3 unspecified; N40.0 Benign prostatic hyperplasia without lower urinary tract symptoms; Z79.899 Other long term (current) drug therapy; Z87.891 Personal history of nicotine dependence; Z88.8 Allergy status to other drugs, medicaments and biological substances; Z91.030 Bee allergy status; Z79.82 Long term (current) use of aspirin; Z99.81 Dependence on supplemental oxygen; Z68.29 Body mass index [BMI] 29.0-29.9, adult
CPT/HCPCS: 36415; 36600; 43235; 43239; 70450; 71045; 71250; 71275; 72197; 74018; 74177; 75635; 76700; 76770; 78264; 78582; 80053; 81001; 82550; 82570; 82803; 82945; 82948; 83605; 83690; 83735; 83880; 83930; 84100; 84133; 84134; 84145; 84156; 84300; 84439; 84443; 84478; 84484; 85018; 85025; 85027; 85379; 86885; 86900; 86901; 87040; 87081; 88305; 88313; 88342; 93005; 93306; 93922; 93925; 93970; 94640; 94760; 96365; 97161; 97530; 99152; 99153; 99285; A4314; A4615; A4620; A5200; A6258; A9539; A9540; A9541; B4087; G0378; J0282; J0360; J0456; J0696; J1160; J1200; J1644; J1885; J2250; J2270; J2405; J2470; J2543; J3010; J3360; J3480; J3490; J7030; J7040; J7060; J7120; J7121; Q9963; Q9967